=== PATIENT | female | born 1945 | race Caucasian/White ===

== ENCOUNTER → 2016-10-05 | Outpatient (CLI) | payer OTHER ==
[~2016-10-05] MED LIST: ALPR0.254 PO; ASPIRIN PO; BENAZEPRIL PO; CARV3.1240 OR; CLOP75TA28 OR; DIPH25CA39 OR; DOCU-94 PO; FLUT110A IN; FOLI1TAB6 OR; GABA300C OR; HYDR-2549 OR; METH1INJ12 IJ; NITROSTAT SL; OMEGCAP OR; OMEPRAZOLE; PRE5T PO; RANI-226 OR; SIMV40TA96 OR; THIA100T46 OR; TRIA1TAB18 OR; [UNRECOGNIZED DRUG - OTHER]; [UNRECOGNIZED DRUG - OTHER]; [UNRECOGNIZED DRUG - OTHER] PO
[2016-10-05 09:14] LABS: Basophils # (auto) 0 uL; Basophils % (auto) 0.5 % (0.0-2.0); Eosinophils # (auto) 0.2 uL; Eosinophils % (auto) 2.4 % (0.0-7.0); Hemoglobin 13.1 g/dL (12.2-16.2); Lymphocytes # (auto) 3.1 uL; Lymphocytes % (auto) 42.1 % (10.0-50.0); Mean Corpuscular Hemoglobin 31.4 pg (28.0-32.0); Mean Corpuscular Hgb Conc. 32.6 g/dL (32.0-36.0); Mean Corpuscular Volume 96.2 fL (80.0-100.0); Mean Platelet Volume 6.4 fL (7.4-10.4); Monocytes # (auto) 0.4 uL; Monocytes % (auto) 5.8 % (0.0-12.0); Neutrophils # (auto) 3.6 uL; Neutrophils % (auto) 49.2 % (37.0-80.0); Platelet Count (auto) 228 10^3/uL (140-450); Red Cell Distribution Width 16.4 % (11.6-16.0); White Blood Cell 7.3 10^3/uL (4.4-10.8)
[2016-10-05 09:39] LABS: Albumin 3.8 g/dL (3.4-5.0); Bilirubin, Total 0.4 mg/dL (0.2-1.0); Calcium 8.8 mg/dL (8.5-10.1); Potassium 4.5 mmol/L (3.5-5.1)
[2016-10-05 10:54] LABS: Urine Bilirubin Negative (Negative); Urine Blood Negative /uL (Negative); Urine Color Yellow (Yellow); Urine Glucose Normal (Normal); Urine Ketone Negative (Negative); Urine Nitrite Negative (Negative); Urine RBC 1 /hpf (0 - 4); Urine Squamous Epithelial Cell FEW /hpf (<5); Urine Urobilinogen Normal (Negative); Urine pH 6.5 (5.0-8.0)
== END | disposition home or self-care (01) ==
LOC: LAB 08:38
PROVIDERS: ATTEND Internal Medicine
DX: E78.00 Pure hypercholesterolemia, unspecified (principal); I10 Essential (primary) hypertension; N18.3 Chronic kidney disease, stage 3 (moderate); Z00.00 Encounter for general adult medical examination without abnormal findings
CPT/HCPCS: 36415; 80053; 80061; 81001; 83615; 84443; 85025; 85652; 86141

== ENCOUNTER → 2016-10-10 | Outpatient (CLI) | payer OTHER | END | disposition home or self-care (01) | LOC: LAB 15:17 | PROVIDERS: ATTEND Internal Medicine | DX: E78.00 Pure hypercholesterolemia, unspecified (principal); I10 Essential (primary) hypertension; N18.3 Chronic kidney disease, stage 3 (moderate); Z00.00 Encounter for general adult medical examination without abnormal findings ==

== ENCOUNTER → 2016-12-27 | Outpatient (CLI) | payer OTHER ==
[~2016-12-27] MED LIST changes: -[UNRECOGNIZED DRUG - OTHER]
[2016-12-27 09:53] LABS: Basophils # (auto) 0 uL; Basophils % (auto) 0.3 % (0.0-2.0); Eosinophils # (auto) 0.2 uL; Hematocrit 36.6 % (36.0-46.0); Hemoglobin 12.2 g/dL (12.2-16.2); Lymphocytes # (auto) 2.7 uL; Lymphocytes % (auto) 31.9 % (10.0-50.0); Mean Corpuscular Hemoglobin 31.8 pg (28.0-32.0); Mean Corpuscular Hgb Conc. 33.3 g/dL (32.0-36.0); Mean Corpuscular Volume 95.5 fL (80.0-100.0); Mean Platelet Volume 6.3 fL (7.4-10.4); Monocytes # (auto) 0.6 uL; Monocytes % (auto) 7.1 % (0.0-12.0); Neutrophils # (auto) 4.9 uL; Neutrophils % (auto) 58.7 % (37.0-80.0); Platelet Count (auto) 233 10^3/uL (140-450); Red Cell Distribution Width 16.1 % (11.6-16.0); White Blood Cell 8.4 10^3/uL (4.4-10.8)
[2016-12-27 10:05] LABS: Urine Bilirubin Negative (Negative); Urine Blood Negative /uL (Negative); Urine Color Yellow (Yellow); Urine Glucose Normal (Normal); Urine Ketone Negative (Negative); Urine Nitrite Negative (Negative); Urine RBC 1 /hpf (0 - 4); Urine Squamous Epithelial Cell FEW /hpf (<5); Urine Urobilinogen Normal (Negative); Urine pH 5.5 (5.0-8.0)
[2016-12-27 10:30] LABS: Albumin 3.5 g/dL (3.4-5.0); Bilirubin, Total 0.3 mg/dL (0.2-1.0); Calcium 8.8 mg/dL (8.5-10.1); Potassium 5.2 mmol/L (3.5-5.1); Total Protein 6.8 g/dL (6.4-8.2)
[2016-12-27 10:31] LABS: Vitamin B12 1360 pg/mL (211-911)
== END | disposition home or self-care (01) ==
LOC: LAB 09:18
DX: E78.5 Hyperlipidemia, unspecified (principal); I10 Essential (primary) hypertension; D64.9 Anemia, unspecified
CPT/HCPCS: 36415; 80053; 80061; 81001; 82306; 82607; 82746; 83540; 83550; 84425; 84443; 85025; 85652; 86141

== ENCOUNTER → 2017-01-07 | Outpatient (CLI) | payer OTHER ==
[2017-01-07 14:54] LABS: Albumin 3.6 g/dL (3.4-5.0); BUN/Creatinine Ratio 12.9; Bilirubin, Total 0.2 mg/dL (0.2-1.0); Potassium 4.2 mmol/L (3.5-5.1); Total Protein 6.9 g/dL (6.4-8.2)
== END | disposition home or self-care (01) ==
LOC: LAB 13:54
PROVIDERS: ATTEND Internal Medicine
DX: C50.919 Malignant neoplasm of unspecified site of unspecified female breast (principal)
CPT/HCPCS: 36415; 80053; 83615

== ENCOUNTER 2017-04-01 11:55 | Emergency (ER) | payer OTHER ==
[~2017-04-01] VITALS: Ht 165.1 cm; Wt 56.7 kg
[2017-04-01 13:07] LABS: Basophils # (auto) 0 uL; Basophils % (auto) 0.5 % (0.0-2.0); CONDITION Y; Eosinophils # (auto) 0 uL; Eosinophils % (auto) 0.4 % (0.0-7.0); Hematocrit 35.8 % (36.0-46.0); Hemoglobin 12.2 g/dL (12.2-16.2); Lymphocytes # (auto) 1.5 uL; Lymphocytes % (auto) 18.6 % (10.0-50.0); Mean Corpuscular Hemoglobin 31.7 pg (28.0-32.0); Mean Corpuscular Volume 93.3 fL (80.0-100.0); Mean Platelet Volume 6.1 fL (7.4-10.4); Monocytes # (auto) 0.5 uL; Monocytes % (auto) 6.8 % (0.0-12.0); Neutrophils # (auto) 5.9 uL; Neutrophils % (auto) 73.7 % (37.0-80.0); Platelet Count (auto) 296 10^3/uL (140-450); Red Cell Distribution Width 15.7 % (11.6-16.0); White Blood Cell 8.1 10^3/uL (4.4-10.8)
[2017-04-01 13:24] LABS: Urine Bilirubin Negative (Negative); Urine Blood Negative /uL (Negative); Urine Color Yellow (Yellow); Urine Glucose Normal (Normal); Urine Ketone Negative (Negative); Urine Mucus FEW (None Seen); Urine Nitrite Negative (Negative); Urine RBC <1 /hpf (0 - 4); Urine Squamous Epithelial Cell FEW /hpf (<5); Urine Urobilinogen Normal (Negative); Urine pH 6.5 (5.0-8.0)
[2017-04-01] MEDS ORDERED: ONDANSETRON HCL 4 MG/2 ML VIAL IV ONE (13:30)
[2017-04-01 13:35] LABS: Albumin 3.6 g/dL (3.4-5.0); Anion Gap 10 (5-15); BUN/Creatinine Ratio 18.7; Blood Urea Nitrogen 14 mg/dL (7-18); Calcium 8.7 mg/dL (8.5-10.1); Carbon Dioxide 26 mmol/L (21-32); Chloride 99 mmol/L (98-107); GFR African American 98 mL/min; GFR Non-African American 81 mL/min; Glucose 105 mg/dL (74-106); Potassium 4.3 mmol/L (3.5-5.1); Sodium 135 mmol/L (136-145)
[2017-04-01 13:44] LABS: Alkaline Phosphatase 86 U/L (45-117); Aspartate Aminotransferase 21 U/L (15-37); Bilirubin, Total 0.3 mg/dL (0.2-1.0); Total Protein 7.2 g/dL (6.4-8.2)
[2017-04-01] MEDS ORDERED: HYDROcodone-ACET 5/325MG TAB PO ONE (19:15)
[2017-04-01] MEDS ORDERED: LORazepam 2MG/ML-1ML VIAL IV ONE (19:15)
[2017-04-01] MEDS ORDERED: SODIUM CHLORIDE 0.9% 2,000 ML IV ONE (19:15)
[2017-04-01 20:21] VITALS: BP 142/77
[2017-04-01 20:59] LABS: INR 0.91 (0.9-1.15); Prothrombin Time 9.9 sec (9.37-12.3)
== END 2017-04-01 20:25 | disposition short-term general hospital (02) ==
LOC: ER 11:55
DX: S06.5X9A Traumatic subdural hemorrhage with loss of consciousness of unspecified duration, initial encounter (principal); M19.90 Unspecified osteoarthritis, unspecified site; K21.9 Gastro-esophageal reflux disease without esophagitis; I10 Essential (primary) hypertension; I25.10 Atherosclerotic heart disease of native coronary artery without angina pectoris; Z85.3 Personal history of malignant neoplasm of breast; F17.210 Nicotine dependence, cigarettes, uncomplicated; Z88.1 Allergy status to other antibiotic agents; Z88.2 Allergy status to sulfonamides; Z79.899 Other long term (current) drug therapy; Z79.82 Long term (current) use of aspirin; W10.9XXA Fall (on) (from) unspecified stairs and steps, initial encounter; Y93.89 Activity, other specified; Y99.8 Other external cause status; Y92.89 Other specified places as the place of occurrence of the external cause
CPT/HCPCS: 36415; 70450; 71010; 80053; 81001; 84484; 85025; 85610; 96361; 96374; 96375; 99285; J2060; J2405; J7030

== ENCOUNTER → 2017-05-15 | Outpatient (CLI) | payer OTHER ==
[2017-05-15 09:22] LABS: Basophils # (auto) 0 uL; Basophils % (auto) 0.4 % (0.0-2.0); CONDITION Y; Eosinophils # (auto) 0.2 uL; Eosinophils % (auto) 2.1 % (0.0-7.0); Hematocrit 40.8 % (36.0-46.0); Hemoglobin 13.8 g/dL (12.2-16.2); Lymphocytes # (auto) 3.7 uL; Lymphocytes % (auto) 46.5 % (10.0-50.0); Mean Corpuscular Hemoglobin 31.4 pg (28.0-32.0); Mean Corpuscular Hgb Conc. 33.9 g/dL (32.0-36.0); Mean Corpuscular Volume 92.7 fL (80.0-100.0); Mean Platelet Volume 6.2 fL (7.4-10.4); Monocytes # (auto) 0.6 uL; Neutrophils # (auto) 3.5 uL; Platelet Count (auto) 246 10^3/uL (140-450); Red Cell Distribution Width 14.8 % (11.6-16.0)
[2017-05-15 09:48] LABS: Albumin 3.8 g/dL (3.4-5.0); Calcium 9.1 mg/dL (8.5-10.1); Potassium 4.6 mmol/L (3.5-5.1)
[2017-05-15 11:40] LABS: Bilirubin, Total 0.4 mg/dL (0.2-1.0); Total Protein 6.8 g/dL (6.4-8.2)
== END ==
LOC: LAB 08:44
DX: I10 Essential (primary) hypertension (principal); D64.9 Anemia, unspecified; M06.9 Rheumatoid arthritis, unspecified; I25.10 Atherosclerotic heart disease of native coronary artery without angina pectoris; K21.9 Gastro-esophageal reflux disease without esophagitis; Z79.899 Other long term (current) drug therapy; J44.9 Chronic obstructive pulmonary disease, unspecified
CPT/HCPCS: 36415; 80053; 85025; 85652; 86141

== ENCOUNTER → 2017-06-10 | Outpatient (CLI) | payer OTHER | END | disposition home or self-care (01) | LOC: LAB 10:00 | PROVIDERS: ATTEND Physician Assistant | DX: L82.1 Other seborrheic keratosis (principal) ==

== ENCOUNTER → 2017-08-07 | Outpatient (CLI) | payer OTHER ==
[2017-08-07 08:54] LABS: Basophils # (auto) 0.1 uL; Basophils % (auto) 0.6 % (0.0-2.0); Eosinophils # (auto) 0.1 uL; Hematocrit 39.5 % (36.0-46.0); Hemoglobin 13.4 g/dL (12.2-16.2); Lymphocytes # (auto) 2.2 uL; Lymphocytes % (auto) 21.6 % (10.0-50.0); Mean Corpuscular Hemoglobin 31.6 pg (28.0-32.0); Mean Corpuscular Volume 93.1 fL (80.0-100.0); Monocytes # (auto) 0.6 uL; Monocytes % (auto) 5.6 % (0.0-12.0); Neutrophils # (auto) 7.2 uL; Neutrophils % (auto) 71.2 % (37.0-80.0); Platelet Count (auto) 204 10^3/uL (140-450); Red Blood Cells 4.24 10^6/uL (4.0-5.20); Red Cell Distribution Width 15.9 % (11.8-14.3); White Blood Cell 10.1 10^3/uL (4.4-10.8)
[2017-08-07 09:41] LABS: Albumin 3.9 g/dL (3.4-5.0); BUN/Creatinine Ratio 13.2; Bilirubin, Total 0.4 mg/dL (0.2-1.0); CRP High Sensitivity 0.12 mg/dL (< 0.3); Calcium 9.3 mg/dL (8.5-10.1); Potassium 5.5 mmol/L (3.5-5.1); Total Protein 7.3 g/dL (6.4-8.2)
== END | disposition home or self-care (01) ==
LOC: LAB 08:40
DX: I11.0 Hypertensive heart disease with heart failure (principal); I50.9 Heart failure, unspecified; I70.0 Atherosclerosis of aorta; M06.9 Rheumatoid arthritis, unspecified; D64.9 Anemia, unspecified; E78.00 Pure hypercholesterolemia, unspecified; Z79.899 Other long term (current) drug therapy
CPT/HCPCS: 36415; 80053; 85025; 85652; 86141

== ENCOUNTER 2017-12-11 20:00 | Inpatient (IN) | payer OTHER ==
[~2017-12-11] VITALS: Ht 165.1 cm; Wt 59.0 kg
[2017-12-11 21:12] LABS: Basophils # (auto) 0 uL; Basophils % (auto) 0.4 % (0.0-2.0); Eosinophils # (auto) 0.2 uL; Eosinophils % (auto) 1.8 % (0.0-7.0); Hematocrit 37.6 % (36.0-46.0); Hemoglobin 12.5 g/dL (12.2-16.2); Lymphocytes # (auto) 3.5 uL; Lymphocytes % (auto) 41.7 % (10.0-50.0); Mean Corpuscular Hemoglobin 31.8 pg (28.0-32.0); Mean Corpuscular Hgb Conc. 33.2 g/dL (32.0-36.0); Mean Corpuscular Volume 95.7 fL (80.0-100.0); Monocytes # (auto) 0.6 uL; Monocytes % (auto) 6.8 % (0.0-12.0); Neutrophils # (auto) 4.1 uL; Neutrophils % (auto) 49.3 % (37.0-80.0); Platelet Count (auto) 197 10^3/uL (140-450); Red Blood Cells 3.93 10^6/uL (4.0-5.20); Red Cell Distribution Width 14.8 % (11.8-14.3); White Blood Cell 8.4 10^3/uL (4.4-10.8)
[2017-12-11 21:26] LABS: Anion Gap 7 (5-15); Carbon Dioxide 21 mmol/L (21-32); Chloride 105 mmol/L (98-107); Potassium 4.4 mmol/L (3.5-5.1); Sodium 133 mmol/L (136-145)
[2017-12-11] MEDS ORDERED: ONDANSETRON HCL 4 MG/2 ML VIAL IV ONE (21:45)
[2017-12-11] MEDS ORDERED: MORPHINE SULFATE 4 MG/ML SYR/VIAL IV ONE (21:45)
[2017-12-11 21:57] LABS: Alanine Aminotransferase 21 U/L (13-56); Albumin 3.8 g/dL (3.4-5.0); Alkaline Phosphatase 75 U/L (45-117); Aspartate Aminotransferase 21 U/L (15-37); BUN/Creatinine Ratio 11.2; Bilirubin, Total 0.3 mg/dL (0.2-1.0); Blood Urea Nitrogen 11 mg/dL (7-18); Calcium 8.6 mg/dL (8.5-10.1); GFR African American 72 mL/min; GFR Non-African American 59 mL/min; Glucose 133 mg/dL (74-106)
[2017-12-11] MEDS ORDERED: ONDANSETRON HCL 4 MG/2 ML VIAL IV PRN (22:30)
[2017-12-11] MEDS ORDERED: TEMAZEPAM 15 MG CAP PO PRN (22:30)
[2017-12-11] MEDS ORDERED: NITROGLYCERIN 0.4 MG SL TAB SL PRN (22:30)
[2017-12-11] MEDS ORDERED: MORPHINE SULFATE 4 MG/ML SYR/VIAL IV PRN (22:30)
[2017-12-11] MEDS ORDERED: DOCUSATE SOD 100 MG CAP PO PRN (22:30)
[2017-12-11] MEDS ORDERED: ATORVASTATIN 20 MG TAB PO ONE (22:30)
[2017-12-11] MEDS ORDERED: ACETAMINOPHEN 325 MG TAB PO PRN (22:30)
[2017-12-11] MEDS ORDERED: HYDROcodone-ACET 5/325MG TAB PO PRN (22:30)
[2017-12-11 22:38] LABS: INR 0.89 (0.9-1.15); Partial Thromboplastin Time 27.6 sec (22.64-33.71); Prothrombin Time 9.7 sec (9.37-12.3)
[2017-12-11] MEDS: ENOXAPARIN SOD 40 MG/0.4 ML SYRINGE SC SCH (22:45)
[2017-12-11] MEDS ORDERED: ALBUTEROL SULF 2.5 MG/0.5ML(0.5%) NEB SOLN NEB PRN (23:45)
[2017-12-11 23:46] VITALS: BP 125/70
[2017-12-12 00:37] VITALS: BP 125/70
[2017-12-12] MEDS ORDERED: IOHEXOL 350 MG/ML 100ML IJ ONE (00:40)
[2017-12-12 01:51] VITALS: BP 125/90
[2017-12-12 05:22] VITALS: BP 105/69
[2017-12-12 06:18] LABS: Basophils # (auto) 0 uL; Basophils % (auto) 0.4 % (0.0-2.0); Eosinophils # (auto) 0.2 uL; Eosinophils % (auto) 2.6 % (0.0-7.0); Hematocrit 34.3 % (36.0-46.0); Hemoglobin 11.6 g/dL (12.2-16.2); Lymphocytes # (auto) 3.4 uL; Mean Corpuscular Hemoglobin 32.1 pg (28.0-32.0); Mean Corpuscular Hgb Conc. 33.7 g/dL (32.0-36.0); Mean Corpuscular Volume 95.3 fL (80.0-100.0); Monocytes # (auto) 0.6 uL; Monocytes % (auto) 8.7 % (0.0-12.0); Neutrophils # (auto) 2.8 uL; Neutrophils % (auto) 40.3 % (37.0-80.0); Nucleated Red Blood Cells % 0.1 %; Platelet Count (auto) 169 10^3/uL (140-450)
[2017-12-12 06:37] LABS: Albumin 3.3 g/dL (3.4-5.0); BUN/Creatinine Ratio 10.6; Bilirubin, Total 0.4 mg/dL (0.2-1.0); Calcium 8.5 mg/dL (8.5-10.1); Potassium 4.1 mmol/L (3.5-5.1); Total Protein 6.1 g/dL (6.4-8.2)
[2017-12-12 08:00] VITALS: BP 133/65
[2017-12-12] MEDS ORDERED: FAMOTIDINE 20 MG TAB PO SCH (10:00)
[2017-12-12] MEDS ORDERED: FOLIC ACID 1 MG TAB PO SCH (10:00)
[2017-12-12] MEDS ORDERED: predniSONE 5 MG TAB PO SCH (10:00)
[2017-12-12] MEDS ORDERED: ASPirin 81 mg TAB PO SCH (10:00)
[2017-12-12] MEDS ORDERED: METOPROLOL SUCCINATE XL 50 MG TAB PO SCH (10:00)
[2017-12-12] MEDS: ENOXAPARIN SOD 40 MG/0.4 ML SYRINGE SC SCH (10:02)
[2017-12-12 12:25] VITALS: BP 122/78
[2017-12-12 12:45] VITALS: BP 122/78
[2017-12-12] MEDS ORDERED: ATORVASTATIN 20 MG TAB PO SCH ×2 (22:00)
== END 2017-12-12 14:17 | disposition home or self-care (01) | DRG 206 ==
LOC: ER 20:00 → EDUNIT# 20:01 → TELE-WESTW 20:01
PROVIDERS: ADMIT Nurse Practitioner; ATTEND Family Medicine
DX: M94.0 Chondrocostal junction syndrome [Tietze] (principal); M06.9 Rheumatoid arthritis, unspecified; E78.00 Pure hypercholesterolemia, unspecified; I25.2 Old myocardial infarction; E78.5 Hyperlipidemia, unspecified; F17.210 Nicotine dependence, cigarettes, uncomplicated; F32.9 Major depressive disorder, single episode, unspecified; F41.9 Anxiety disorder, unspecified; I10 Essential (primary) hypertension; Z79.82 Long term (current) use of aspirin; Z79.899 Other long term (current) drug therapy; Z82.49 Family history of ischemic heart disease and other diseases of the circulatory system; Z88.2 Allergy status to sulfonamides; Z88.1 Allergy status to other antibiotic agents
CPT/HCPCS: 36415; 71045; 71275; 80053; 83735; 83880; 84443; 84484; 85025; 85379; 85610; 85730; 93005; 93306; 94761; 96374; 96375; J2405

== ENCOUNTER → 2018-01-10 | Outpatient (CLI) | payer OTHER ==
[~2018-01-10] MED LIST changes: +ALBUAER3 IN; +AMIT100T2 PO; +ASPI81TA13 PO; +BENA5TAB5 PO; +DICL1GEL26 TD; +FOLI1TAB6 PO; +GABA300C10 PO; +HYDR-3682 PO; +HYDR-531 PO; +LEUC5TAB PO; +METO-535 PO; +NITR0.2D12 TD; +NITR0.4S29 SL; +OME20T PO; +RANI1TAB6 PO; +SIMV-13 PO; +TRIA0.1P11 TOP; +TRIA0.25 PO
[2018-01-10 09:05] LABS: Basophils # (auto) 0 uL; Basophils % (auto) 0.6 % (0.0-2.0); Eosinophils # (auto) 0.1 uL; Eosinophils % (auto) 1.8 % (0.0-7.0); Hematocrit 36.8 % (36.0-46.0); Hemoglobin 12.4 g/dL (12.2-16.2); Lymphocytes % (auto) 27.7 % (10.0-50.0); Mean Corpuscular Hgb Conc. 33.7 g/dL (32.0-36.0); Mean Corpuscular Volume 94.8 fL (80.0-100.0); Monocytes # (auto) 0.5 uL; Monocytes % (auto) 7.4 % (0.0-12.0); Neutrophils # (auto) 4.4 uL; Neutrophils % (auto) 62.5 % (37.0-80.0); Platelet Count (auto) 210 10^3/uL (140-450); Red Blood Cells 3.88 10^6/uL (4.0-5.20); Red Cell Distribution Width 15.1 % (11.8-14.3); White Blood Cell 7.1 10^3/uL (4.4-10.8)
[2018-01-10 09:16] LABS: INR 0.92 (0.9-1.15); Partial Thromboplastin Time 26.3 sec (22.64-33.71)
[2018-01-10 09:36] LABS: Albumin 3.7 g/dL (3.4-5.0); BUN/Creatinine Ratio 10.6; Bilirubin, Total 0.3 mg/dL (0.2-1.0); Calcium 8.7 mg/dL (8.5-10.1); Potassium 4.8 mmol/L (3.5-5.1)
== END | disposition home or self-care (01) ==
LOC: LAB 08:42
PROVIDERS: ATTEND Internal Medicine Cardiovascular Disease
DX: Z01.812 Encounter for preprocedural laboratory examination (principal); I20.8 Other forms of angina pectoris
CPT/HCPCS: 36415; 80053; 85025; 85610; 85730

== ENCOUNTER → 2018-02-13 | Outpatient (CLI) | payer OTHER ==
[~2018-02-13] MED LIST changes: -ASPIRIN PO; -BENAZEPRIL PO; -CARV3.1240 OR; -CLOP75TA28 OR; -DIPH25CA39 OR; -DOCU-94 PO; -FLUT110A IN; -FOLI1TAB6 OR; -GABA300C OR; -HYDR-2549 OR; -METH1INJ12 IJ; -NITROSTAT SL; -OMEGCAP OR; -OMEPRAZOLE; -RANI-226 OR; -SIMV40TA96 OR; -THIA100T46 OR; -TRIA1TAB18 OR; -[UNRECOGNIZED DRUG - OTHER]; -[UNRECOGNIZED DRUG - OTHER] PO
[2018-02-13 15:41] LABS: Basophils # (auto) 0 uL; Basophils % (auto) 0.5 % (0.0-2.0); Eosinophils # (auto) 0.1 uL; Eosinophils % (auto) 0.9 % (0.0-7.0); Hemoglobin 11.8 g/dL (12.2-16.2); Lymphocytes # (auto) 2.3 uL; Lymphocytes % (auto) 29.4 % (10.0-50.0); Mean Corpuscular Hemoglobin 31.5 pg (28.0-32.0); Mean Corpuscular Hgb Conc. 33.7 g/dL (32.0-36.0); Mean Corpuscular Volume 93.6 fL (80.0-100.0); Monocytes # (auto) 0.6 uL; Neutrophils # (auto) 4.8 uL; Neutrophils % (auto) 61.2 % (37.0-80.0); Nucleated Red Blood Cells % 0.1 %; Platelet Count (auto) 198 10^3/uL (140-450); Red Blood Cells 3.74 10^6/uL (4.0-5.20); Red Cell Distribution Width 14.2 % (11.8-14.3); White Blood Cell 7.8 10^3/uL (4.4-10.8)
[2018-02-13 15:57] LABS: Albumin 3.5 g/dL (3.4-5.0); BUN/Creatinine Ratio 17.9; Bilirubin, Total 0.1 mg/dL (0.2-1.0); Calcium 8.6 mg/dL (8.5-10.1); Potassium 4.3 mmol/L (3.5-5.1); Total Protein 6.9 g/dL (6.4-8.2)
== END | disposition home or self-care (01) ==
LOC: LAB 15:04
PROVIDERS: ATTEND Internal Medicine
DX: C50.919 Malignant neoplasm of unspecified site of unspecified female breast (principal); I10 Essential (primary) hypertension; J44.9 Chronic obstructive pulmonary disease, unspecified; M06.9 Rheumatoid arthritis, unspecified; Z85.3 Personal history of malignant neoplasm of breast
CPT/HCPCS: 36415; 80053; 83615; 85025

== ENCOUNTER 2018-06-08 13:13 | Inpatient (IN) | payer OTHER ==
[~2018-06-08] VITALS: Ht 170.2 cm; Wt 65.8 kg
[~2018-06-08 13:13] MED LIST changes: +ASPI1TAB19 PO; -ASPI81TA13 PO
[2018-06-08] MEDS ORDERED: SODIUM CHLORIDE 0.9% 1,000 ML IV ONE (13:51)
[2018-06-08] MEDS ORDERED: SODIUM CHLORIDE 0.9% 500 ML IVB ONE (13:51)
[2018-06-08] MEDS ORDERED: PROMETHAZINE HCL 25 MG/ML 1ML IV PRN (14:00)
[2018-06-08] MEDS: MORPHINE SULFATE 4 MG/ML SYR/VIAL IV ONE ×2 (14:00→17:37)
[2018-06-08 14:47] LABS: Basophils # (auto) 0.1 uL; Basophils % (auto) 1.1 % (0.0-2.0); Eosinophils # (auto) 0.1 uL; Eosinophils % (auto) 0.8 % (0.0-7.0); Hematocrit 53.1 % (36.0-46.0); Hemoglobin 17.8 g/dL (12.2-16.2); Lymphocytes # (auto) 1.6 uL; Lymphocytes % (auto) 13.6 % (10.0-50.0); Mean Corpuscular Hemoglobin 30.8 pg (28.0-32.0); Mean Corpuscular Hgb Conc. 33.6 g/dL (32.0-36.0); Mean Corpuscular Volume 91.9 fL (80.0-100.0); Monocytes # (auto) 1.2 uL; Monocytes % (auto) 9.9 % (0.0-12.0); Neutrophils # (auto) 8.7 uL; Neutrophils % (auto) 74.6 % (37.0-80.0); Platelet Count (auto) 245 10^3/uL (140-450); Red Blood Cells 5.78 10^6/uL (4.0-5.20); White Blood Cell 11.6 10^3/uL (4.4-10.8)
[2018-06-08 14:54] LABS: Partial Thromboplastin Time 25.5 sec (23.78-33.04); Prothrombin Time 10.7 sec (9.27-12.13)
[2018-06-08 15:05] LABS: Alanine Aminotransferase 37 U/L (13-56); Albumin 4.2 g/dL (3.4-5.0); Anion Gap 18 (5-15); Aspartate Aminotransferase 29 U/L (15-37); BUN/Creatinine Ratio 11.9; Blood Urea Nitrogen 22 mg/dL (7-18); Calcium 9.3 mg/dL (8.5-10.1); Carbon Dioxide 20 mmol/L (21-32); Chloride 97 mmol/L (98-107); GFR African American 34 mL/min; GFR Non-African American 28 mL/min; Glucose 172 mg/dL (74-106); Sodium 135 mmol/L (136-145)
[2018-06-08 15:08] LABS: Alkaline Phosphatase 83 U/L (45-117); Bilirubin, Total 0.7 mg/dL (0.2-1.0); Total Protein 8.1 g/dL (6.4-8.2)
[2018-06-08] MEDS ORDERED: GASTROGRAFIN 120 ML SOL ONE (16:04)
[2018-06-08 16:14] LABS: Urine Bacteria NONE SEEN /hpf (None Seen); Urine Blood Negative /uL (Negative); Urine Specific Gravity 1.011 (1.001-1.035); Urine WBC 1 /hpf (0 - 5)
[2018-06-08 16:24] LABS: Amylase 93 U/L (25-115); Lipase 235 U/L (73-393); Magnesium 2.4 mg/dL (1.6-2.6)
[2018-06-08] MEDS ORDERED: ONDANSETRON HCL 4 MG/2 ML VIAL IV ONE ×2 (16:30→19:00)
[2018-06-08] MEDS ORDERED: ONDANSETRON HCL 4 MG/2 ML VIAL ONE (18:50)
[2018-06-08] MEDS ORDERED: DEXTROSE (50%) 50ML SYRG IV PRN (21:00)
[2018-06-08] MEDS ORDERED: ONDANSETRON HCL 4 MG/2 ML VIAL IV PRN (21:00)
[2018-06-08] MEDS ORDERED: metroNIDAZOLE 500MG/100ML 100 ML IV ONE (21:00)
[2018-06-08] MEDS ORDERED: MORPHINE SULF INJ 2 MG/ML SYRINGE 1ML IV PRN (21:00)
[2018-06-08] MEDS ORDERED: NITROGLYCERIN 0.4 MG SL TAB SL PRN (21:00)
[2018-06-08] MEDS ORDERED: cefTRIAXone 1GM/10ml IVPUSH 10 ML IV ONE (21:00)
[2018-06-08] MEDS ORDERED: PANTOPRAZOLE 40 MG/10 ML VIAL IV ONE (21:15)
[2018-06-08] MEDS ORDERED: FAMOTIDINE (10MG/ML) 2ML VL IV ONE (21:15)
[2018-06-08 22:00] VITALS: BP 96/63
[2018-06-08] MEDS: D5W/SOD CHL 0.45%/KCL 20MEQ 1,000 ML IV SCH (22:40)
[2018-06-08 22:47] LABS: Lactic Acid w/Reflex 2.8 mmol/L (0.4-2.0)
[2018-06-08] MEDS: ALBUTEROL SULF 2.5 MG/0.5ML(0.5%) NEB SOLN NEB SCH (23:06)
[2018-06-08] MEDS: IPRATROPIUM BROM 0.5 MG/2.5ML INH SOL NEB SCH (23:06)
[2018-06-09] VITALS (8 sets, daily range): BP systolic 106–121; BP diastolic 53–71
[2018-06-09] MEDS: methylPREDNISolone SOD SUCC 125 MG/2 ML VL IV SCH ×4 (00:46→19:06)
[2018-06-09] MEDS ORDERED: diphenhdrAMINE HCL 50 MG/1 ML VL IV ONE (02:15)
[2018-06-09] MEDS: metroNIDAZOLE 500MG/100ML 100 ML IV SCH ×4 (06:08→19:06)
[2018-06-09] MEDS: IPRATROPIUM BROM 0.5 MG/2.5ML INH SOL NEB SCH ×3 (06:09→21:14)
[2018-06-09] MEDS: InsuLIN REG 1unit/0.01ml Soln (100units/ml) SC SCH ×4 (06:09→19:07)
[2018-06-09] MEDS: ACCU-CHEK COMFORT CURVE STRIP VI SCH ×4 (06:09→19:07)
[2018-06-09] MEDS: ALBUTEROL SULF 2.5 MG/0.5ML(0.5%) NEB SOLN NEB SCH ×3 (06:09→21:14)
[2018-06-09 06:22] LABS: Basophils # (auto) 0 uL; Eosinophils # (auto) 0 uL; Eosinophils % (auto) 0.1 % (0.0-7.0); Hematocrit 39.9 % (36.0-46.0); Hemoglobin 13.5 g/dL (12.2-16.2); Lymphocytes # (auto) 0.7 uL; Lymphocytes % (auto) 11.2 % (10.0-50.0); Mean Corpuscular Hemoglobin 31.6 pg (28.0-32.0); Mean Corpuscular Hgb Conc. 33.8 g/dL (32.0-36.0); Mean Corpuscular Volume 93.7 fL (80.0-100.0); Monocytes # (auto) 0.3 uL; Monocytes % (auto) 4.8 % (0.0-12.0); Neutrophils # (auto) 5.4 uL; Neutrophils % (auto) 83.9 % (37.0-80.0); Platelet Count (auto) 180 10^3/uL (140-450); Red Blood Cells 4.26 10^6/uL (4.0-5.20); Red Cell Distribution Width 16.9 % (11.8-14.3); White Blood Cell 6.4 10^3/uL (4.4-10.8)
[2018-06-09 06:40] LABS: Chloride 109 mmol/L (98-107); Potassium 4.3 mmol/L (3.5-5.1); Sodium 138 mmol/L (136-145)
[2018-06-09 06:53] LABS: Albumin 2.7 g/dL (3.4-5.0); Alkaline Phosphatase 52 U/L (45-117); Anion Gap 11 (5-15); BUN/Creatinine Ratio 21.3; Bilirubin, Total 0.7 mg/dL (0.2-1.0); Blood Urea Nitrogen 35 mg/dL (7-18); Carbon Dioxide 18 mmol/L (21-32); GFR African American 39 mL/min; GFR Non-African American 33 mL/min; Glucose 171 mg/dL (74-106); Total Protein 6.1 g/dL (6.4-8.2)
[2018-06-09 07:05] LABS: Alanine Aminotransferase 23 U/L (13-56); Aspartate Aminotransferase 23 U/L (15-37)
[2018-06-09] MEDS: D5W/SOD CHL 0.45%/KCL 20MEQ 1,000 ML IV SCH (07:42)
[2018-06-09] MEDS: FAMOTIDINE (10MG/ML) 2ML VL IV SCH ×2 (10:00→10:08)
[2018-06-09] MEDS: cefTRIAXone 1GM/10ml IVPUSH 10 ML IV SCH (10:08)
[2018-06-09] MEDS: PANTOPRAZOLE 40 MG/10 ML VIAL IV SCH (10:08)
[2018-06-09] MEDS: SODIUM CHLORIDE 0.9% 1,000 ML IV SCH (14:30)
[2018-06-09] MEDS ORDERED: methylPREDNISolone SOD SUCC 40 MG/ML VL IV SCH (22:00)
[2018-06-10] MEDS: metroNIDAZOLE 500MG/100ML 100 ML IV SCH ×5 (00:40→23:18)
[2018-06-10] MEDS: SODIUM CHLORIDE 0.9% 1,000 ML IV SCH ×3 (01:37→20:30)
[2018-06-10 04:33] VITALS: BP 125/65
[2018-06-10] MEDS: ALBUTEROL SULF 2.5 MG/0.5ML(0.5%) NEB SOLN NEB SCH ×3 (05:49→21:32)
[2018-06-10] MEDS: IPRATROPIUM BROM 0.5 MG/2.5ML INH SOL NEB SCH ×3 (05:49→21:32)
[2018-06-10] MEDS: InsuLIN REG 1unit/0.01ml Soln (100units/ml) SC SCH ×5 (06:00→23:12)
[2018-06-10] MEDS: ACCU-CHEK COMFORT CURVE STRIP VI SCH ×5 (06:00→23:11)
[2018-06-10] MEDS: cefTRIAXone 1GM/10ml IVPUSH 10 ML IV SCH (08:28)
[2018-06-10 08:55] VITALS: BP 125/58
[2018-06-10] MEDS ORDERED: GASTROGRAFIN 120 ML SOL ONE (09:07)
[2018-06-10 11:21] LABS: Basophils # (auto) 0 uL; Basophils % (auto) 0.2 % (0.0-2.0); Eosinophils # (auto) 0 uL; Hematocrit 39.6 % (36.0-46.0); Hemoglobin 13.1 g/dL (12.2-16.2); Lymphocytes % (auto) 8.6 % (10.0-50.0); Mean Corpuscular Hgb Conc. 33.1 g/dL (32.0-36.0); Mean Corpuscular Volume 93.7 fL (80.0-100.0); Monocytes # (auto) 0.7 uL; Monocytes % (auto) 5.8 % (0.0-12.0); Neutrophils # (auto) 10.2 uL; Neutrophils % (auto) 85.4 % (37.0-80.0); Nucleated Red Blood Cells % 0.1 %; Platelet Count (auto) 159 10^3/uL (140-450); Red Blood Cells 4.23 10^6/uL (4.0-5.20); Red Cell Distribution Width 17.2 % (11.8-14.3); White Blood Cell 11.9 10^3/uL (4.4-10.8)
[2018-06-10 11:36] LABS: Albumin 3.3 g/dL (3.4-5.0); BUN/Creatinine Ratio 21.4; Bilirubin, Total 0.2 mg/dL (0.2-1.0); Calcium 8.7 mg/dL (8.5-10.1); Magnesium 2.7 mg/dL (1.6-2.6); Potassium 3.5 mmol/L (3.5-5.1); Total Protein 6.9 g/dL (6.4-8.2)
[2018-06-10] MEDS: MORPHINE SULF INJ 2 MG/ML SYRINGE 1ML IV PRN ×3 (11:51→22:16)
[2018-06-10] MEDS: PANTOPRAZOLE 40 MG/10 ML VIAL IV SCH (11:51)
[2018-06-10] MEDS ORDERED: methylPREDNISolone SOD SUCC 40 MG/ML VL ONE (12:51)
[2018-06-10 17:37] VITALS: BP 167/83
[2018-06-10 22:08] VITALS: BP 187/98
[2018-06-10] MEDS: PROMETHAZINE HCL 25 MG/ML 1ML IV PRN (23:06)
[2018-06-11] MEDS: PROMETHAZINE HCL 25 MG/ML 1ML IV PRN (03:15)
[2018-06-11] MEDS: MORPHINE SULF INJ 2 MG/ML SYRINGE 1ML IV PRN ×2 (03:16→06:56)
[2018-06-11 04:44] VITALS: BP 170/99
[2018-06-11] MEDS: ACCU-CHEK COMFORT CURVE STRIP VI SCH ×3 (05:20→17:42)
[2018-06-11] MEDS: metroNIDAZOLE 500MG/100ML 100 ML IV SCH ×3 (05:20→17:43)
[2018-06-11] MEDS: InsuLIN REG 1unit/0.01ml Soln (100units/ml) SC SCH ×3 (05:23→17:43)
[2018-06-11] MEDS: SODIUM CHLORIDE 0.9% 1,000 ML IV SCH ×2 (06:52→16:45)
[2018-06-11] MEDS: IPRATROPIUM BROM 0.5 MG/2.5ML INH SOL NEB SCH ×3 (07:16→22:21)
[2018-06-11] MEDS: ALBUTEROL SULF 2.5 MG/0.5ML(0.5%) NEB SOLN NEB SCH ×3 (07:16→22:21)
[2018-06-11 08:33] VITALS: BP 167/102
[2018-06-11] MEDS: cefTRIAXone 1GM/10ml IVPUSH 10 ML IV SCH (09:18)
[2018-06-11] MEDS: PANTOPRAZOLE 40 MG/10 ML VIAL IV SCH (09:51)
[2018-06-11] MEDS: methylPREDNISolone SOD SUCC 40 MG/ML VL IV SCH (09:52)
[2018-06-11 12:13] VITALS: BP 187/100
[2018-06-11 12:59] LABS: Basophils # (auto) 0 uL; Eosinophils # (auto) 0 uL; Eosinophils % (auto) 0.1 % (0.0-7.0); Hematocrit 49.4 % (36.0-46.0); Hemoglobin 16.7 g/dL (12.2-16.2); Lymphocytes # (auto) 1.1 uL; Lymphocytes % (auto) 8.8 % (10.0-50.0); Mean Corpuscular Hemoglobin 31.5 pg (28.0-32.0); Mean Corpuscular Hgb Conc. 33.7 g/dL (32.0-36.0); Mean Corpuscular Volume 93.4 fL (80.0-100.0); Monocytes # (auto) 0.5 uL; Monocytes % (auto) 4.1 % (0.0-12.0); Neutrophils # (auto) 10.5 uL; Nucleated Red Blood Cells % 0.1 %; Platelet Count (auto) 203 10^3/uL (140-450); Red Blood Cells 5.29 10^6/uL (4.0-5.20); Red Cell Distribution Width 16.9 % (11.8-14.3); White Blood Cell 12.1 10^3/uL (4.4-10.8)
[2018-06-11] MEDS ORDERED: PPN PER PHARMACY 0 ML IV SCH (13:45)
[2018-06-11] MEDS ORDERED: DEXTROSE (50%) 50ML SYRG IV SCH (13:54)
[2018-06-11 15:06] LABS: Albumin 3.2 g/dL (3.4-5.0); BUN/Creatinine Ratio 25.9; Bilirubin, Total 0.4 mg/dL (0.2-1.0); Calcium 8.7 mg/dL (8.5-10.1); Magnesium 2.6 mg/dL (1.6-2.6); Phosphorus 2.7 mg/dL (2.5-4.90); Potassium 5.2 mmol/L (3.5-5.1); Pre Albumin 27.5 mg/dL (20.0-40.0)
[2018-06-11 17:01] VITALS: BP 153/73
[2018-06-11] MEDS: CLINIMIX PER PHARMACY IV NR (20:02)
[2018-06-11 22:00] VITALS: BP 127/99
[2018-06-12] MEDS: metroNIDAZOLE 500MG/100ML 100 ML IV SCH ×4 (00:12→18:02)
[2018-06-12] MEDS: ACCU-CHEK COMFORT CURVE STRIP VI SCH ×5 (00:13→23:14)
[2018-06-12] MEDS: InsuLIN REG 1unit/0.01ml Soln (100units/ml) SC SCH ×5 (00:24→23:14)
[2018-06-12] MEDS: SODIUM CHLORIDE 0.9% 1,000 ML IV SCH ×3 (02:30→23:13)
[2018-06-12] MEDS: HYDROmorphone HCL 2 MG/ML VL IV PRN ×3 (03:29→22:26)
[2018-06-12] MEDS: PROMETHAZINE HCL 25 MG/ML 1ML IV PRN (03:54)
[2018-06-12 05:00] VITALS: BP 145/89
[2018-06-12] MEDS: ALBUTEROL SULF 2.5 MG/0.5ML(0.5%) NEB SOLN NEB SCH ×2 (05:40→14:21)
[2018-06-12] MEDS: IPRATROPIUM BROM 0.5 MG/2.5ML INH SOL NEB SCH ×2 (05:40→14:21)
[2018-06-12 08:25] LABS: Albumin 2.8 g/dL (3.4-5.0); BUN/Creatinine Ratio 27.5; Bilirubin, Total 0.3 mg/dL (0.2-1.0); Magnesium 2.7 mg/dL (1.6-2.6); Phosphorus 1.5 mg/dL (2.5-4.90); Potassium 3.8 mmol/L (3.5-5.1); Total Protein 5.8 g/dL (6.4-8.2)
[2018-06-12 09:00] VITALS: BP 155/76
[2018-06-12] MEDS ORDERED: POTASSIUM PHOSPHATE 44 MEQ in D5W 5% 250 ML IV ONE (09:30)
[2018-06-12] MEDS: cefTRIAXone 1GM/10ml IVPUSH 10 ML IV SCH (09:53)
[2018-06-12] MEDS: methylPREDNISolone SOD SUCC 40 MG/ML VL IV SCH (09:53)
[2018-06-12] MEDS: PANTOPRAZOLE 40 MG/10 ML VIAL IV SCH (09:53)
[2018-06-12] MEDS ORDERED: [UNRECOGNIZED DRUG - OTHER] IV SCH ×15 (10:00→20:00)
[2018-06-12] MEDS ORDERED: POTASSIUM ACETATE IV SCH ×15 (10:00→20:00)
[2018-06-12] MEDS ORDERED: POTASSIUM PHOSPHATE IV SCH ×15 (10:00→20:00)
[2018-06-12] MEDS ORDERED: FAT EMULSION IV SCH ×15 (10:00→20:00)
[2018-06-12 17:08] VITALS: BP 140/70
[2018-06-12] MEDS: CLINIMIX PER PHARMACY IV NR (19:49)
[2018-06-12 21:30] VITALS: BP 124/69
[2018-06-13] MEDS: metroNIDAZOLE 500MG/100ML 100 ML IV SCH ×5 (00:16→23:49)
[2018-06-13 05:18] VITALS: BP 130/74
[2018-06-13] MEDS: ALBUTEROL SULF 2.5 MG/0.5ML(0.5%) NEB SOLN NEB SCH ×3 (05:44→22:53)
[2018-06-13] MEDS: IPRATROPIUM BROM 0.5 MG/2.5ML INH SOL NEB SCH ×3 (05:44→22:53)
[2018-06-13] MEDS: InsuLIN REG 1unit/0.01ml Soln (100units/ml) SC SCH ×4 (06:00→23:49)
[2018-06-13] MEDS: ACCU-CHEK COMFORT CURVE STRIP VI SCH ×4 (07:16→23:49)
[2018-06-13 08:12] LABS: Albumin 3.2 g/dL (3.4-5.0); BUN/Creatinine Ratio 24.3; Bilirubin, Total 0.3 mg/dL (0.2-1.0); Calcium 8.4 mg/dL (8.5-10.1); Magnesium 2.5 mg/dL (1.6-2.6); Phosphorus 2.4 mg/dL (2.5-4.90); Potassium 3.9 mmol/L (3.5-5.1); Total Protein 6.5 g/dL (6.4-8.2)
[2018-06-13 08:30] VITALS: BP 120/92
[2018-06-13] MEDS: cefTRIAXone 1GM/10ml IVPUSH 10 ML IV SCH (10:05)
[2018-06-13] MEDS: PANTOPRAZOLE 40 MG/10 ML VIAL IV SCH (10:06)
[2018-06-13] MEDS: SODIUM CHLORIDE 0.9% 1,000 ML IV SCH ×3 (10:09→23:00)
[2018-06-13] MEDS: methylPREDNISolone SOD SUCC 40 MG/ML VL IV SCH (10:09)
[2018-06-13] MEDS: HYDROmorphone HCL 2 MG/ML VL IV PRN (10:13)
[2018-06-13 12:39] VITALS: BP 159/93
[2018-06-13] MEDS: METOCLOPRAMIDE HCL 5MG/ml INJ 2ml VIAL IV SCH ×2 (13:11→21:14)
[2018-06-13] MEDS ORDERED: POTASSIUM PHOSPHATE IV NR ×7 (20:00)
[2018-06-13] MEDS ORDERED: [UNRECOGNIZED DRUG - OTHER] IV NR ×7 (20:00)
[2018-06-13] MEDS ORDERED: POTASSIUM ACETATE IV NR ×7 (20:00)
[2018-06-13] MEDS ORDERED: FAT EMULSION IV NR ×7 (20:00)
[2018-06-13 22:01] VITALS: BP 130/61
[2018-06-14 05:39] VITALS: BP 112/65
[2018-06-14] MEDS: InsuLIN REG 1unit/0.01ml Soln (100units/ml) SC SCH ×3 (06:00→17:52)
[2018-06-14] MEDS: IPRATROPIUM BROM 0.5 MG/2.5ML INH SOL NEB SCH ×3 (06:21→22:10)
[2018-06-14] MEDS: ALBUTEROL SULF 2.5 MG/0.5ML(0.5%) NEB SOLN NEB SCH ×3 (06:21→22:10)
[2018-06-14] MEDS: metroNIDAZOLE 500MG/100ML 100 ML IV SCH ×3 (06:24→17:51)
[2018-06-14] MEDS: ACCU-CHEK COMFORT CURVE STRIP VI SCH ×3 (06:24→17:52)
[2018-06-14 06:30] LABS: Albumin 3.1 g/dL (3.4-5.0); BUN/Creatinine Ratio 25.8; Bilirubin, Total 0.3 mg/dL (0.2-1.0); Calcium 8.4 mg/dL (8.5-10.1); Magnesium 2.1 mg/dL (1.6-2.6); Phosphorus 2.3 mg/dL (2.5-4.90); Potassium 3.5 mmol/L (3.5-5.1); Total Protein 6.2 g/dL (6.4-8.2)
[2018-06-14] MEDS: HYDROmorphone HCL 2 MG/ML VL IV PRN (08:00)
[2018-06-14 09:14] VITALS: BP 133/60
[2018-06-14] MEDS: METOCLOPRAMIDE HCL 5MG/ml INJ 2ml VIAL IV SCH ×2 (09:34→22:33)
[2018-06-14] MEDS: cefTRIAXone 1GM/10ml IVPUSH 10 ML IV SCH (09:34)
[2018-06-14] MEDS: PANTOPRAZOLE 40 MG/10 ML VIAL IV SCH (09:34)
[2018-06-14] MEDS: methylPREDNISolone SOD SUCC 40 MG/ML VL IV SCH (09:35)
[2018-06-14] MEDS ORDERED: POTASSIUM PHOSP 22MEQ(15MMOLE) in NS 100 ML IV ONE (12:00)
[2018-06-14] MEDS ORDERED: SODIUM PHOSP 20MEQ(15MMOL) IN NS 100 ML IV ONE (12:00)
[2018-06-14 13:06] VITALS: BP 164/103
[2018-06-14] MEDS: SODIUM CHLORIDE 0.9% 1,000 ML IV SCH (16:07)
[2018-06-14 17:10] VITALS: BP 147/81
[2018-06-14] MEDS ORDERED: PPN PER PHARMACY IV NR ×11 (20:00)
[2018-06-14 20:27] VITALS: BP 134/69
[2018-06-14 22:18] VITALS: BP 134/69
[2018-06-14] MEDS: PROMETHAZINE HCL 25 MG/ML 1ML IV PRN (22:34)
[2018-06-15] MEDS: metroNIDAZOLE 500MG/100ML 100 ML IV SCH ×5 (00:50→23:55)
[2018-06-15] MEDS: HYDROmorphone HCL 2 MG/ML VL IV PRN ×2 (03:57→23:55)
[2018-06-15] MEDS: SODIUM CHLORIDE 0.9% 1,000 ML IV SCH ×2 (04:27→14:11)
[2018-06-15 04:48] VITALS: BP 163/90
[2018-06-15] MEDS: InsuLIN REG 1unit/0.01ml Soln (100units/ml) SC SCH ×4 (06:00→18:00)
[2018-06-15] MEDS: ACCU-CHEK COMFORT CURVE STRIP VI SCH ×5 (06:00→23:55)
[2018-06-15] MEDS: ALBUTEROL SULF 2.5 MG/0.5ML(0.5%) NEB SOLN NEB SCH ×3 (06:37→21:36)
[2018-06-15] MEDS: IPRATROPIUM BROM 0.5 MG/2.5ML INH SOL NEB SCH ×3 (06:37→21:36)
[2018-06-15 08:24] VITALS: BP 131/78
[2018-06-15] MEDS: cefTRIAXone 1GM/10ml IVPUSH 10 ML IV SCH (09:04)
[2018-06-15] MEDS: PANTOPRAZOLE 40 MG/10 ML VIAL IV SCH (09:04)
[2018-06-15] MEDS: methylPREDNISolone SOD SUCC 40 MG/ML VL IV SCH (09:04)
[2018-06-15] MEDS: METOCLOPRAMIDE HCL 5MG/ml INJ 2ml VIAL IV SCH ×2 (09:04→21:45)
[2018-06-15 10:41] VITALS: BP 131/78
[2018-06-15 11:09] LABS: Albumin 3.3 g/dL (3.4-5.0); BUN/Creatinine Ratio 23.1; Bilirubin, Total 0.4 mg/dL (0.2-1.0); Calcium 8.5 mg/dL (8.5-10.1); Magnesium 2.3 mg/dL (1.6-2.6); Phosphorus 2.5 mg/dL (2.5-4.90); Potassium 3.5 mmol/L (3.5-5.1); Total Protein 6.5 g/dL (6.4-8.2)
[2018-06-15 12:14] VITALS: BP 136/88
[2018-06-15 17:34] VITALS: BP 146/72
[2018-06-15] MEDS ORDERED: SODIUM ACETATE IV NR ×10 (20:00)
[2018-06-15] MEDS ORDERED: FAT EMULSION IV NR ×10 (20:00)
[2018-06-15] MEDS ORDERED: POTASSIUM ACETATE IV NR ×10 (20:00)
[2018-06-15] MEDS ORDERED: [UNRECOGNIZED DRUG - OTHER] IV NR ×10 (20:00)
[2018-06-15 20:20] VITALS: BP 124/82
[2018-06-15] MEDS: PROMETHAZINE HCL 25 MG/ML 1ML IV PRN (21:45)
[2018-06-16 04:22] VITALS: BP 117/76
[2018-06-16 05:29] LABS: Basophils # (auto) 0 uL; Basophils % (auto) 0.2 % (0.0-2.0); Eosinophils # (auto) 0.1 uL; Eosinophils % (auto) 0.9 % (0.0-7.0); Hematocrit 41.4 % (36.0-46.0); Hemoglobin 13.8 g/dL (12.2-16.2); Lymphocytes # (auto) 2.4 uL; Lymphocytes % (auto) 23.8 % (10.0-50.0); Mean Corpuscular Hemoglobin 31.1 pg (28.0-32.0); Mean Corpuscular Hgb Conc. 33.4 g/dL (32.0-36.0); Monocytes % (auto) 10.1 % (0.0-12.0); Neutrophils # (auto) 6.5 uL; Nucleated Red Blood Cells % 0.1 %; Platelet Count (auto) 157 10^3/uL (140-450); Red Blood Cells 4.45 10^6/uL (4.0-5.20); Red Cell Distribution Width 16.9 % (11.8-14.3)
[2018-06-16] MEDS: HYDROmorphone HCL 2 MG/ML VL IV PRN ×3 (06:09→21:22)
[2018-06-16 06:10] LABS: Albumin 3.3 g/dL (3.4-5.0); BUN/Creatinine Ratio 23.7; Bilirubin, Total 0.4 mg/dL (0.2-1.0); Calcium 8.4 mg/dL (8.5-10.1); Magnesium 2.3 mg/dL (1.6-2.6); Phosphorus 2.9 mg/dL (2.5-4.90); Potassium 3.7 mmol/L (3.5-5.1); Total Protein 6.3 g/dL (6.4-8.2)
[2018-06-16] MEDS: metroNIDAZOLE 500MG/100ML 100 ML IV SCH ×3 (06:16→17:40)
[2018-06-16] MEDS: ACCU-CHEK COMFORT CURVE STRIP VI SCH ×3 (06:20→17:47)
[2018-06-16] MEDS: IPRATROPIUM BROM 0.5 MG/2.5ML INH SOL NEB SCH ×4 (06:25→22:16)
[2018-06-16] MEDS: ALBUTEROL SULF 2.5 MG/0.5ML(0.5%) NEB SOLN NEB SCH ×4 (06:25→22:16)
[2018-06-16] MEDS: InsuLIN REG 1unit/0.01ml Soln (100units/ml) SC SCH ×4 (06:26→17:47)
[2018-06-16] MEDS ORDERED: SODIUM CHLORIDE 0.9% 500 ML IV ONE (06:30)
[2018-06-16 08:15] VITALS: BP 123/78
[2018-06-16] MEDS: SODIUM CHLORIDE 0.9% 1,000 ML IV SCH (08:22)
[2018-06-16] MEDS: cefTRIAXone 1GM/10ml IVPUSH 10 ML IV SCH (09:35)
[2018-06-16] MEDS: METOCLOPRAMIDE HCL 5MG/ml INJ 2ml VIAL IV SCH (09:35)
[2018-06-16] MEDS: PANTOPRAZOLE 40 MG/10 ML VIAL IV SCH (09:35)
[2018-06-16] MEDS: methylPREDNISolone SOD SUCC 40 MG/ML VL IV SCH (09:36)
[2018-06-16] MEDS ORDERED: GASTROGRAFIN 120 ML SOL ONE (11:14)
[2018-06-16] MEDS: PROCHLORPERAZINE EDISYLATE 5 MG/ML 2ML VIAL IV PRN (14:32)
[2018-06-16 16:49] VITALS: BP 149/88
[2018-06-16] MEDS ORDERED: FAT EMULSION IV NR ×20 (20:00)
[2018-06-16] MEDS ORDERED: POTASSIUM ACETATE IV NR ×20 (20:00)
[2018-06-16] MEDS ORDERED: SODIUM ACETATE IV NR ×20 (20:00)
[2018-06-16] MEDS ORDERED: [UNRECOGNIZED DRUG - OTHER] IV NR ×20 (20:00)
[2018-06-16 21:52] VITALS: BP 155/95
[2018-06-17] MEDS: METOCLOPRAMIDE HCL 5MG/ml INJ 2ml VIAL IV SCH ×3 (00:38→22:27)
[2018-06-17] MEDS: metroNIDAZOLE 500MG/100ML 100 ML IV SCH ×4 (00:38→17:16)
[2018-06-17] MEDS: ACCU-CHEK COMFORT CURVE STRIP VI SCH ×4 (00:39→17:16)
[2018-06-17] MEDS: InsuLIN REG 1unit/0.01ml Soln (100units/ml) SC SCH ×4 (00:40→17:16)
[2018-06-17] MEDS: PROCHLORPERAZINE EDISYLATE 5 MG/ML 2ML VIAL IV PRN ×4 (00:40→20:03)
[2018-06-17] MEDS: SODIUM CHLORIDE 0.9% 1,000 ML IV SCH ×2 (00:40→22:32)
[2018-06-17 04:51] VITALS: BP 115/94
[2018-06-17] MEDS: ALBUTEROL SULF 2.5 MG/0.5ML(0.5%) NEB SOLN NEB SCH ×3 (06:38→22:03)
[2018-06-17] MEDS: IPRATROPIUM BROM 0.5 MG/2.5ML INH SOL NEB SCH ×3 (06:38→22:03)
[2018-06-17 07:14] LABS: Albumin 3.2 g/dL (3.4-5.0); BUN/Creatinine Ratio 27.1; Bilirubin, Total 0.5 mg/dL (0.2-1.0); Calcium 8.5 mg/dL (8.5-10.1); Magnesium 2.2 mg/dL (1.6-2.6); Potassium 4.8 mmol/L (3.5-5.1); Total Protein 6.6 g/dL (6.4-8.2)
[2018-06-17] MEDS: HYDROmorphone HCL 2 MG/ML VL IV PRN ×3 (08:22→20:03)
[2018-06-17 09:25] VITALS: BP 154/95
[2018-06-17] MEDS: PANTOPRAZOLE 40 MG/10 ML VIAL IV SCH (09:25)
[2018-06-17] MEDS: methylPREDNISolone SOD SUCC 40 MG/ML VL IV SCH (09:25)
[2018-06-17] MEDS: cefTRIAXone 1GM/10ml IVPUSH 10 ML IV SCH (09:25)
[2018-06-17 12:30] VITALS: BP 144/100
[2018-06-17] MEDS ORDERED: LORazepam 2MG/ML-1ML VIAL IV ONE (15:15)
[2018-06-17 16:45] VITALS: BP 126/78
[2018-06-17] MEDS ORDERED: Ensure Enlive Strawberry 8oz Bottle PO SCH (18:30)
[2018-06-17] MEDS ORDERED: [UNRECOGNIZED DRUG - OTHER] IV NR ×11 (20:00)
[2018-06-17] MEDS ORDERED: SODIUM PHOSPHATES IV NR ×11 (20:00)
[2018-06-17] MEDS ORDERED: FAT EMULSION IV NR ×11 (20:00)
[2018-06-17] MEDS ORDERED: SODIUM ACETATE IV NR ×11 (20:00)
[2018-06-17] MEDS: METOPROLOL TARTRATE 25 MG TAB PO SCH ×2 (22:00→22:32)
[2018-06-18] VITALS (7 sets, daily range): BP systolic 89–149; BP diastolic 60–98
[2018-06-18] MEDS: metroNIDAZOLE 500MG/100ML 100 ML IV SCH ×4 (00:42→18:31)
[2018-06-18] MEDS: InsuLIN REG 1unit/0.01ml Soln (100units/ml) SC SCH ×4 (00:48→18:45)
[2018-06-18] MEDS: ACCU-CHEK COMFORT CURVE STRIP VI SCH ×4 (00:48→18:32)
[2018-06-18] MEDS: METOPROLOL TARTRATE 25 MG TAB PO SCH ×3 (01:00→22:31)
[2018-06-18] MEDS: PROCHLORPERAZINE EDISYLATE 5 MG/ML 2ML VIAL IV PRN ×3 (01:34→19:56)
[2018-06-18] MEDS: HYDROmorphone HCL 2 MG/ML VL IV PRN ×3 (01:34→19:56)
[2018-06-18 06:29] LABS: Albumin 2.8 g/dL (3.4-5.0); BUN/Creatinine Ratio 30.4; Bilirubin, Total 0.4 mg/dL (0.2-1.0); Calcium 7.9 mg/dL (8.5-10.1); Magnesium 1.7 mg/dL (1.6-2.6); Phosphorus 2.5 mg/dL (2.5-4.90); Potassium 3.9 mmol/L (3.5-5.1); Total Protein 5.6 g/dL (6.4-8.2)
[2018-06-18] MEDS: IPRATROPIUM BROM 0.5 MG/2.5ML INH SOL NEB SCH ×2 (06:29→13:55)
[2018-06-18] MEDS: ALBUTEROL SULF 2.5 MG/0.5ML(0.5%) NEB SOLN NEB SCH ×2 (06:30→13:55)
[2018-06-18] MEDS: Ensure Enlive Chocolate 8oz Bottle PO SCH ×3 (08:00→18:00)
[2018-06-18] MEDS: cefTRIAXone 1GM/10ml IVPUSH 10 ML IV SCH (09:05)
[2018-06-18] MEDS: methylPREDNISolone SOD SUCC 40 MG/ML VL IV SCH (09:33)
[2018-06-18] MEDS: METOCLOPRAMIDE HCL 5MG/ml INJ 2ml VIAL IV SCH ×2 (09:33→22:31)
[2018-06-18] MEDS: PANTOPRAZOLE 40 MG/10 ML VIAL IV SCH (09:33)
[2018-06-18] MEDS: LORazepam 2MG/ML-1ML VIAL IV PRN (11:51)
[2018-06-18] MEDS: SODIUM CHLORIDE 0.9% 1,000 ML IV SCH (16:55)
[2018-06-18] MEDS ORDERED: PPN PER PHARMACY IV NR ×12 (20:00)
[2018-06-19] MEDS: LORazepam 2MG/ML-1ML VIAL IV PRN ×4 (00:14→21:33)
[2018-06-19] MEDS: metroNIDAZOLE 500MG/100ML 100 ML IV SCH ×2 (00:15→05:43)
[2018-06-19] MEDS: ACCU-CHEK COMFORT CURVE STRIP VI SCH ×5 (00:26→23:36)
[2018-06-19] MEDS: InsuLIN REG 1unit/0.01ml Soln (100units/ml) SC SCH ×5 (00:26→23:35)
[2018-06-19] MEDS: IPRATROPIUM BROM 0.5 MG/2.5ML INH SOL NEB SCH ×4 (01:32→18:35)
[2018-06-19] MEDS: ALBUTEROL SULF 2.5 MG/0.5ML(0.5%) NEB SOLN NEB SCH ×4 (01:32→18:35)
[2018-06-19 05:48] VITALS: BP 96/60
[2018-06-19] MEDS: Ensure Enlive Chocolate 8oz Bottle PO SCH ×3 (08:00→18:00)
[2018-06-19 09:00] VITALS: BP 138/76
[2018-06-19] MEDS: methylPREDNISolone SOD SUCC 40 MG/ML VL IV SCH (09:23)
[2018-06-19] MEDS: METOCLOPRAMIDE HCL 5MG/ml INJ 2ml VIAL IV SCH ×2 (09:23→21:32)
[2018-06-19] MEDS: PANTOPRAZOLE 40 MG/10 ML VIAL IV SCH (09:23)
[2018-06-19] MEDS: cefTRIAXone 1GM/10ml IVPUSH 10 ML IV SCH (09:23)
[2018-06-19] MEDS: SODIUM CHLORIDE 0.9% 1,000 ML IV SCH ×2 (09:23→23:36)
[2018-06-19] MEDS: HYDROmorphone HCL 2 MG/ML VL IV PRN ×3 (09:24→21:33)
[2018-06-19] MEDS: METOPROLOL TARTRATE 25 MG TAB PO SCH ×2 (10:00→21:33)
[2018-06-19 10:29] LABS: Basophils # (auto) 0.1 uL; Basophils % (auto) 0.3 % (0.0-2.0); Eosinophils # (auto) 0 uL; Eosinophils % (auto) 0.1 % (0.0-7.0); Hematocrit 36.7 % (36.0-46.0); Hemoglobin 11.9 g/dL (12.2-16.2); Lymphocytes # (auto) 1.6 uL; Lymphocytes % (auto) 7.8 % (10.0-50.0); Mean Corpuscular Hemoglobin 29.9 pg (28.0-32.0); Mean Corpuscular Hgb Conc. 32.4 g/dL (32.0-36.0); Mean Corpuscular Volume 92.4 fL (80.0-100.0); Monocytes # (auto) 1.2 uL; Monocytes % (auto) 5.7 % (0.0-12.0); Neutrophils # (auto) 17.7 uL; Neutrophils % (auto) 86.1 % (37.0-80.0); Platelet Count (auto) 155 10^3/uL (140-450); Red Blood Cells 3.98 10^6/uL (4.0-5.20); Red Cell Distribution Width 16.2 % (11.8-14.3); White Blood Cell 20.6 10^3/uL (4.4-10.8)
[2018-06-19 11:04] LABS: Albumin 2.5 g/dL (3.4-5.0); Bilirubin, Total 0.2 mg/dL (0.2-1.0); Calcium 7.9 mg/dL (8.5-10.1); Magnesium 2.4 mg/dL (1.6-2.6); Phosphorus 2.8 mg/dL (2.5-4.90); Total Protein 5.5 g/dL (6.4-8.2)
[2018-06-19 11:17] LABS: Potassium 2.8 mmol/L (3.5-5.1)
[2018-06-19] MEDS: PIPERACILLIN-TAZOB 3.375GM 100 ML IV SCH ×3 (12:00→23:35)
[2018-06-19] MEDS: POTASSIUM CHL 20MEQ/100ML 100 ML IV SCH ×2 (12:02→13:30)
[2018-06-19 13:00] VITALS: BP 138/66
[2018-06-19 14:50] LABS: INR 1.06 (0.9-1.15); Prothrombin Time 11.3 sec (9.27-12.13)
[2018-06-19] MEDS ORDERED: FLUCONAZOLE 200MG/100ML 100 ML IV ONE (15:00)
[2018-06-19] MEDS: PROCHLORPERAZINE EDISYLATE 5 MG/ML 2ML VIAL IV PRN (16:27)
[2018-06-19 16:49] VITALS: BP 131/70
[2018-06-19 17:34] LABS: Urine Bacteria NONE SEEN /hpf (None Seen); Urine Blood Negative /uL (Negative); Urine Specific Gravity 1.021 (1.001-1.035); Urine WBC 2 /hpf (0 - 5)
[2018-06-19] MEDS ORDERED: SODIUM PHOSPHATES IV NR ×11 (20:00)
[2018-06-19] MEDS ORDERED: FAT EMULSION IV NR ×11 (20:00)
[2018-06-19] MEDS ORDERED: SODIUM CHLORIDE IV NR ×11 (20:00)
[2018-06-19] MEDS ORDERED: [UNRECOGNIZED DRUG - REMARK] IV NR ×11 (20:00)
[2018-06-19] MEDS ORDERED: [UNRECOGNIZED DRUG - OTHER] IV NR ×11 (20:00)
[2018-06-19] MEDS: POTASSIUM CHLORIDE 20 MEQ in D5W 5% 1,000 ML IV SCH ×2 (21:21→23:37)
[2018-06-19 21:57] VITALS: BP 136/67
[2018-06-20] VITALS (21 sets, daily range): BP systolic 92–166; BP diastolic 66–92
[2018-06-20] MEDS: PIPERACILLIN-TAZOB 3.375GM 100 ML IV SCH ×3 (05:39→18:03)
[2018-06-20] MEDS: InsuLIN REG 1unit/0.01ml Soln (100units/ml) SC SCH ×3 (05:39→18:00)
[2018-06-20] MEDS: ACCU-CHEK COMFORT CURVE STRIP VI SCH ×3 (05:40→18:00)
[2018-06-20] MEDS: HYDROmorphone HCL 2 MG/ML VL IV PRN (05:40)
[2018-06-20] MEDS: LORazepam 2MG/ML-1ML VIAL IV PRN (05:40)
[2018-06-20] MEDS: ALBUTEROL SULF 2.5 MG/0.5ML(0.5%) NEB SOLN NEB SCH ×3 (06:16→22:12)
[2018-06-20] MEDS: IPRATROPIUM BROM 0.5 MG/2.5ML INH SOL NEB SCH ×3 (06:16→22:12)
[2018-06-20 06:35] LABS: Basophils # (auto) 0 uL; Basophils % (auto) 0.2 % (0.0-2.0); Eosinophils # (auto) 0.1 uL; Eosinophils % (auto) 0.7 % (0.0-7.0); Hematocrit 29.5 % (36.0-46.0); Hemoglobin 10.1 g/dL (12.2-16.2); Lymphocytes # (auto) 1.5 uL; Lymphocytes % (auto) 10.7 % (10.0-50.0); Mean Corpuscular Hemoglobin 31.3 pg (28.0-32.0); Mean Corpuscular Hgb Conc. 34.3 g/dL (32.0-36.0); Mean Corpuscular Volume 91.4 fL (80.0-100.0); Monocytes # (auto) 0.9 uL; Monocytes % (auto) 6.8 % (0.0-12.0); Neutrophils # (auto) 11.2 uL; Neutrophils % (auto) 81.6 % (37.0-80.0); Platelet Count (auto) 165 10^3/uL (140-450); Red Blood Cells 3.22 10^6/uL (4.0-5.20); Red Cell Distribution Width 16.1 % (11.8-14.3); White Blood Cell 13.7 10^3/uL (4.4-10.8)
[2018-06-20 06:50] LABS: Albumin 2.2 g/dL (3.4-5.0); BUN/Creatinine Ratio 32.8; Bilirubin, Total 0.3 mg/dL (0.2-1.0); Calcium 7.6 mg/dL (8.5-10.1); Phosphorus 3.4 mg/dL (2.5-4.90); Potassium 3.3 mmol/L (3.5-5.1)
[2018-06-20] MEDS: Ensure Enlive Chocolate 8oz Bottle PO SCH ×3 (08:00→18:00)
[2018-06-20] MEDS ORDERED: HYDROCORTISONE SOD SUCC 100 MG/2ML INJ VIAL ONE (08:40)
[2018-06-20] MEDS ORDERED: ROCURONIUM 10MG/ML 10ML VIAL IV ONE ×2 (08:40→13:20)
[2018-06-20] MEDS ORDERED: ETOMIDATE (2MG/ML) 20ML VIAL IV ONE (08:40)
[2018-06-20] MEDS ORDERED: HYDROmorphone HCL 2 MG/ML VL ONE (08:40)
[2018-06-20] MEDS ORDERED: fentaNYL CITRATE 10 ML ONE ×2 (08:40→11:33)
[2018-06-20] MEDS ORDERED: MIDAZOLAM HCL 1MG/1ML-2 ML VIAL ONE (08:40)
[2018-06-20] MEDS ORDERED: fentaNYL CITRATE 100 MCG/2 ML VL ONE (08:40)
[2018-06-20] MEDS: METOCLOPRAMIDE HCL 5MG/ml INJ 2ml VIAL IV SCH ×2 (10:00→22:29)
[2018-06-20] MEDS: PANTOPRAZOLE 40 MG/10 ML VIAL IV SCH (10:00)
[2018-06-20] MEDS: FLUCONAZOLE 200MG/100ML 100 ML IV SCH ×2 (10:00→11:00)
[2018-06-20] MEDS: METOPROLOL TARTRATE 25 MG TAB PO SCH ×2 (10:00→22:00)
[2018-06-20] MEDS: methylPREDNISolone SOD SUCC 40 MG/ML VL IV SCH (10:00)
[2018-06-20] MEDS ORDERED: ceFAZolin 1GM VL ONE (13:13)
[2018-06-20] MEDS ORDERED: NOREPINEPHRINE 8 MG/250ML KIT 250 ML IV ONE (13:26)
[2018-06-20] MEDS ORDERED: MIDAZOLAM HCL 1MG/1ML-2 ML VIAL IV PRN (14:30)
[2018-06-20] MEDS ORDERED: METOCLOPRAMIDE HCL 5MG/ml INJ 2ml VIAL IV ONE (14:30)
[2018-06-20] MEDS ORDERED: ACCU-CHEK COMFORT CURVE STRIP VI ONE (14:30)
[2018-06-20] MEDS ORDERED: HYDROmorphone HCL 2 MG/ML VL IV PRN (14:30)
[2018-06-20] MEDS: MIDAZOLAM DRIP 50 mg/50mL 50 ML IV SCH (14:32)
[2018-06-20] MEDS ORDERED: LORazepam 2MG/ML-1ML VIAL IV PRN (14:45)
[2018-06-20] MEDS ORDERED: NITROGLYCERIN 50MG/250ML 250 ML IV ONE (15:10)
[2018-06-20] MEDS: NITROGLYCERIN 50MG/250ML 250 ML IV SCH (15:20)
[2018-06-20] MEDS: fentaNYL Drip 2500mCg/250mlNS 250 ML IV SCH (15:30)
[2018-06-20] MEDS ORDERED: PPN PER PHARMACY IV NR ×11 (20:00)
[2018-06-21] VITALS (100 sets, daily range): BP systolic 65–193; BP diastolic 25–108
[2018-06-21] MEDS: MORPHINE SULFATE 4 MG/ML SYR/VIAL IV PRN ×3 (00:35→22:00)
[2018-06-21] MEDS ORDERED: D5W/ SOD CHL 0.9%/KCL 20MEQ 1,000 ML IV ONE (00:59)
[2018-06-21 04:14] LABS: Basophils # (auto) 0.1 uL; Basophils % (auto) 0.4 % (0.0-2.0); Eosinophils # (auto) 0.1 uL; Eosinophils % (auto) 0.7 % (0.0-7.0); Hematocrit 38.1 % (36.0-46.0); Hemoglobin 12.5 g/dL (12.2-16.2); Lymphocytes # (auto) 2.3 uL; Lymphocytes % (auto) 13.6 % (10.0-50.0); Mean Corpuscular Hemoglobin 30.3 pg (28.0-32.0); Mean Corpuscular Hgb Conc. 32.7 g/dL (32.0-36.0); Mean Corpuscular Volume 92.5 fL (80.0-100.0); Monocytes % (auto) 6.1 % (0.0-12.0); Neutrophils # (auto) 13.2 uL; Neutrophils % (auto) 79.2 % (37.0-80.0); Platelet Count (auto) 195 10^3/uL (140-450); Red Blood Cells 4.12 10^6/uL (4.0-5.20); Red Cell Distribution Width 16.6 % (11.8-14.3); White Blood Cell 16.7 10^3/uL (4.4-10.8)
[2018-06-21 04:42] LABS: Albumin 1.7 g/dL (3.4-5.0); Bilirubin, Total 0.4 mg/dL (0.2-1.0); Calcium 7.1 mg/dL (8.5-10.1); Magnesium 2.1 mg/dL (1.6-2.6); Phosphorus 3.6 mg/dL (2.5-4.90); Potassium 4.1 mmol/L (3.5-5.1); Total Protein 4.5 g/dL (6.4-8.2)
[2018-06-21] MEDS: POTASSIUM CHLORIDE 20 MEQ in D5W 5% 1,000 ML IV SCH (06:13)
[2018-06-21] MEDS: InsuLIN REG 1unit/0.01ml Soln (100units/ml) SC SCH ×4 (06:13→18:17)
[2018-06-21] MEDS: ACCU-CHEK COMFORT CURVE STRIP VI SCH ×4 (06:13→17:34)
[2018-06-21] MEDS: PIPERACILLIN-TAZOB 3.375GM 100 ML IV SCH ×4 (06:13→17:33)
[2018-06-21] MEDS: ALBUTEROL SULF 2.5 MG/0.5ML(0.5%) NEB SOLN NEB SCH ×3 (06:57→22:39)
[2018-06-21] MEDS: IPRATROPIUM BROM 0.5 MG/2.5ML INH SOL NEB SCH ×5 (06:58→22:39)
[2018-06-21] MEDS: Ensure Enlive Chocolate 8oz Bottle PO SCH ×3 (07:37→17:34)
[2018-06-21] MEDS: METOPROLOL TARTRATE 25 MG TAB PO SCH ×2 (10:00→21:59)
[2018-06-21] MEDS: PANTOPRAZOLE 40 MG/10 ML VIAL IV SCH (10:40)
[2018-06-21] MEDS: METOCLOPRAMIDE HCL 5MG/ml INJ 2ml VIAL IV SCH ×2 (10:40→22:21)
[2018-06-21] MEDS: ENOXAPARIN SOD 40 MG/0.4 ML SYRINGE SC SCH (10:41)
[2018-06-21] MEDS: FLUCONAZOLE 200MG/100ML 100 ML IV SCH ×2 (10:43→12:58)
[2018-06-21] MEDS: methylPREDNISolone SOD SUCC 40 MG/ML VL IV SCH (12:57)
[2018-06-21] MEDS: fentaNYL Drip 2500mCg/250mlNS 250 ML IV SCH (14:32)
[2018-06-21] MEDS: MIDAZOLAM DRIP 50 mg/50mL 50 ML IV SCH (14:32)
[2018-06-21] MEDS: NITROGLYCERIN 50MG/250ML 250 ML IV SCH (14:59)
[2018-06-21] MEDS ORDERED: PPN PER PHARMACY IV NR ×11 (20:00)
[2018-06-21] MEDS: PROCHLORPERAZINE EDISYLATE 5 MG/ML 2ML VIAL IV PRN (22:00)
[2018-06-22] VITALS (31 sets, daily range): BP systolic 72–164; BP diastolic 35–70
[2018-06-22] MEDS: PIPERACILLIN-TAZOB 3.375GM 100 ML IV SCH ×4 (00:23→17:52)
[2018-06-22] MEDS: POTASSIUM CHLORIDE 20 MEQ in D5W 5% 1,000 ML IV SCH ×2 (02:06→15:16)
[2018-06-22 04:03] LABS: Basophils # (auto) 0 uL; Basophils % (auto) 0.2 % (0.0-2.0); Eosinophils # (auto) 0 uL; Eosinophils % (auto) 0.4 % (0.0-7.0); Hemoglobin 8.5 g/dL (12.2-16.2); Lymphocytes # (auto) 1.2 uL; Lymphocytes % (auto) 12.5 % (10.0-50.0); Mean Corpuscular Hemoglobin 31.2 pg (28.0-32.0); Mean Corpuscular Hgb Conc. 34.2 g/dL (32.0-36.0); Mean Corpuscular Volume 91.2 fL (80.0-100.0); Monocytes # (auto) 0.9 uL; Monocytes % (auto) 9.4 % (0.0-12.0); Neutrophils # (auto) 7.5 uL; Neutrophils % (auto) 77.5 % (37.0-80.0); Platelet Count (auto) 136 10^3/uL (140-450); Red Blood Cells 2.74 10^6/uL (4.0-5.20); Red Cell Distribution Width 15.9 % (11.8-14.3); White Blood Cell 9.6 10^3/uL (4.4-10.8)
[2018-06-22 04:23] LABS: Albumin 1.4 g/dL (3.4-5.0); Bilirubin, Total 0.3 mg/dL (0.2-1.0); Calcium 6.8 mg/dL (8.5-10.1); Magnesium 2.2 mg/dL (1.6-2.6); Potassium 3.6 mmol/L (3.5-5.1)
[2018-06-22] MEDS: InsuLIN REG 1unit/0.01ml Soln (100units/ml) SC SCH ×4 (06:00→18:05)
[2018-06-22] MEDS: ACCU-CHEK COMFORT CURVE STRIP VI SCH ×4 (06:00→18:11)
[2018-06-22] MEDS: IPRATROPIUM BROM 0.5 MG/2.5ML INH SOL NEB SCH ×5 (06:36→22:20)
[2018-06-22] MEDS: ALBUTEROL SULF 2.5 MG/0.5ML(0.5%) NEB SOLN NEB SCH ×3 (06:36→22:20)
[2018-06-22] MEDS: Ensure Enlive Chocolate 8oz Bottle PO SCH ×3 (08:00→18:00)
[2018-06-22] MEDS: METOPROLOL TARTRATE 25 MG TAB PO SCH ×2 (10:00→22:02)
[2018-06-22] MEDS: HYDROmorphone HCL 2 MG/ML VL IV PRN (10:09)
[2018-06-22] MEDS: FLUCONAZOLE 200MG/100ML 100 ML IV SCH ×2 (10:09→11:25)
[2018-06-22] MEDS: PANTOPRAZOLE 40 MG/10 ML VIAL IV SCH (10:10)
[2018-06-22] MEDS: methylPREDNISolone SOD SUCC 40 MG/ML VL IV SCH (10:10)
[2018-06-22] MEDS: METOCLOPRAMIDE HCL 5MG/ml INJ 2ml VIAL IV SCH ×2 (10:10→22:01)
[2018-06-22] MEDS: ENOXAPARIN SOD 40 MG/0.4 ML SYRINGE SC SCH (10:10)
[2018-06-22] MEDS ORDERED: SODIUM PHOSPHATES 20 MEQ in SODIUM CHL 0.9% 100 ML IV ONE (12:30)
[2018-06-22] MEDS: MORPHINE SULFATE 4 MG/ML SYR/VIAL IV PRN ×2 (17:40→23:12)
[2018-06-22] MEDS ORDERED: CALCIUM GLUC 4.65meq/50ml D5AE 50 ML IV ONE (18:00)
[2018-06-22] MEDS ORDERED: PPN PER PHARMACY IV NR ×12 (20:00)
[2018-06-23] MEDS: PIPERACILLIN-TAZOB 3.375GM 100 ML IV SCH ×2 (00:20→05:46)
[2018-06-23] MEDS: InsuLIN REG 1unit/0.01ml Soln (100units/ml) SC SCH ×4 (00:20→18:00)
[2018-06-23] MEDS: ACCU-CHEK COMFORT CURVE STRIP VI SCH ×4 (00:20→18:00)
[2018-06-23] MEDS: IPRATROPIUM BROM 0.5 MG/2.5ML INH SOL NEB SCH ×6 (02:01→22:49)
[2018-06-23 05:31] VITALS: BP 139/81
[2018-06-23] MEDS: ALBUTEROL SULF 2.5 MG/0.5ML(0.5%) NEB SOLN NEB SCH ×3 (06:12→18:45)
[2018-06-23 07:34] LABS: Magnesium 2.2 mg/dL (1.6-2.6); Phosphorus 3.4 mg/dL (2.5-4.90)
[2018-06-23 07:37] LABS: Albumin 1.5 g/dL (3.4-5.0); BUN/Creatinine Ratio 25.8; Bilirubin, Total 0.3 mg/dL (0.2-1.0); Calcium 7.7 mg/dL (8.5-10.1); Potassium 4.3 mmol/L (3.5-5.1)
[2018-06-23] MEDS: Ensure Enlive Chocolate 8oz Bottle PO SCH ×3 (08:00→18:00)
[2018-06-23 09:00] VITALS: BP 117/76
[2018-06-23] MEDS: METOCLOPRAMIDE HCL 5MG/ml INJ 2ml VIAL IV SCH ×2 (10:00→21:28)
[2018-06-23] MEDS: PANTOPRAZOLE 40 MG/10 ML VIAL IV SCH (10:00)
[2018-06-23] MEDS: FLUCONAZOLE 200MG/100ML 100 ML IV SCH ×2 (10:00→11:00)
[2018-06-23] MEDS ORDERED: HYDROmorphone HCL 2 MG/ML VL IV PRN (11:45)
[2018-06-23] MEDS: ENOXAPARIN SOD 40 MG/0.4 ML SYRINGE SC SCH (11:51)
[2018-06-23] MEDS: METOPROLOL TARTRATE 25 MG TAB PO SCH ×2 (11:52→21:29)
[2018-06-23] MEDS: methylPREDNISolone SOD SUCC 40 MG/ML VL IV SCH (11:52)
[2018-06-23] MEDS: POTASSIUM CHLORIDE 20 MEQ in D5W 5% 1,000 ML IV SCH (11:53)
[2018-06-23 13:00] VITALS: BP 120/62
[2018-06-23 13:16] LABS: Basophils # (auto) 0.1 uL; Basophils % (auto) 0.8 % (0.0-2.0); Eosinophils # (auto) 0.1 uL; Eosinophils % (auto) 1.1 % (0.0-7.0); Hematocrit 26.7 % (36.0-46.0); Hemoglobin 8.8 g/dL (12.2-16.2); Lymphocytes # (auto) 1.3 uL; Lymphocytes % (auto) 13.8 % (10.0-50.0); Mean Corpuscular Hemoglobin 30.5 pg (28.0-32.0); Mean Corpuscular Hgb Conc. 32.9 g/dL (32.0-36.0); Mean Corpuscular Volume 92.7 fL (80.0-100.0); Monocytes % (auto) 10.4 % (0.0-12.0); Neutrophils % (auto) 73.9 % (37.0-80.0); Platelet Count (auto) 171 10^3/uL (140-450); Red Blood Cells 2.88 10^6/uL (4.0-5.20); White Blood Cell 9.5 10^3/uL (4.4-10.8)
[2018-06-23] MEDS ORDERED: LEVOFLOXACIN 750MG 150 ML IV ONE (13:30)
[2018-06-23] MEDS: HYDROmorphone HCL 2 MG/ML VL IV PRN ×2 (17:07→21:36)
[2018-06-23 17:25] VITALS: BP 141/83
[2018-06-23] MEDS ORDERED: PPN PER PHARMACY IV NR ×11 (20:00)
[2018-06-23] MEDS: ALBUTEROL SULF 2.5 MG/0.5ML(0.5%) NEB SOLN NEB PRN (22:49)
[2018-06-23 23:08] VITALS: BP 125/75
[2018-06-24] VITALS (7 sets, daily range): BP systolic 94–140; BP diastolic 48–79
[2018-06-24] MEDS: PROCHLORPERAZINE EDISYLATE 5 MG/ML 2ML VIAL IV PRN (00:02)
[2018-06-24] MEDS: IPRATROPIUM BROM 0.5 MG/2.5ML INH SOL NEB SCH ×6 (02:30→22:21)
[2018-06-24] MEDS: HYDROmorphone HCL 2 MG/ML VL IV PRN (02:35)
[2018-06-24] MEDS: ACCU-CHEK COMFORT CURVE STRIP VI SCH ×4 (03:30→18:26)
[2018-06-24] MEDS: InsuLIN REG 1unit/0.01ml Soln (100units/ml) SC SCH ×4 (05:58→18:00)
[2018-06-24] MEDS: ALBUTEROL SULF 2.5 MG/0.5ML(0.5%) NEB SOLN NEB SCH ×3 (06:47→22:21)
[2018-06-24] MEDS: Ensure Enlive Chocolate 8oz Bottle PO SCH ×3 (08:00→18:00)
[2018-06-24 08:25] LABS: Basophils # (auto) 0 uL; Basophils % (auto) 0.1 % (0.0-2.0); Eosinophils # (auto) 0 uL; Eosinophils % (auto) 0.4 % (0.0-7.0); Hematocrit 31.6 % (36.0-46.0); Hemoglobin 10.8 g/dL (12.2-16.2); Lymphocytes # (auto) 1.1 uL; Lymphocytes % (auto) 12.2 % (10.0-50.0); Mean Corpuscular Hemoglobin 31.3 pg (28.0-32.0); Mean Corpuscular Hgb Conc. 34.2 g/dL (32.0-36.0); Mean Corpuscular Volume 91.6 fL (80.0-100.0); Monocytes # (auto) 0.5 uL; Monocytes % (auto) 5.9 % (0.0-12.0); Neutrophils # (auto) 7.2 uL; Neutrophils % (auto) 81.4 % (37.0-80.0); Platelet Count (auto) 238 10^3/uL (140-450); Red Blood Cells 3.45 10^6/uL (4.0-5.20); Red Cell Distribution Width 16.1 % (11.8-14.3); White Blood Cell 8.9 10^3/uL (4.4-10.8)
[2018-06-24 08:47] LABS: Albumin 1.5 g/dL (3.4-5.0); BUN/Creatinine Ratio 25.8; Bilirubin, Total 0.4 mg/dL (0.2-1.0); Calcium 7.8 mg/dL (8.5-10.1); Phosphorus 2.8 mg/dL (2.5-4.90); Potassium 4.4 mmol/L (3.5-5.1); Total Protein 5.3 g/dL (6.4-8.2)
[2018-06-24] MEDS: methylPREDNISolone SOD SUCC 40 MG/ML VL IV SCH (11:34)
[2018-06-24] MEDS: PANTOPRAZOLE 40 MG/10 ML VIAL IV SCH (11:34)
[2018-06-24] MEDS: ENOXAPARIN SOD 40 MG/0.4 ML SYRINGE SC SCH (11:34)
[2018-06-24] MEDS: METOCLOPRAMIDE HCL 5MG/ml INJ 2ml VIAL IV SCH ×2 (11:34→22:25)
[2018-06-24] MEDS: LEVOFLOXACIN 750MG 150 ML IV SCH (11:35)
[2018-06-24] MEDS: METOPROLOL TARTRATE 25 MG TAB PO SCH ×2 (13:01→22:26)
[2018-06-24] MEDS ORDERED: IOHEXOL 350 MG/ML 100ML IJ ONE (17:10)
[2018-06-24] MEDS ORDERED: FAT EMULSION IV NR ×11 (20:00)
[2018-06-24] MEDS ORDERED: SODIUM PHOSPHATES IV NR ×11 (20:00)
[2018-06-24] MEDS ORDERED: SODIUM ACETATE IV NR ×11 (20:00)
[2018-06-24] MEDS ORDERED: [UNRECOGNIZED DRUG - OTHER] IV NR ×11 (20:00)
[2018-06-24] MEDS: POTASSIUM CHLORIDE 20 MEQ in D5W 5% 1,000 ML IV SCH (20:10)
[2018-06-25] MEDS: ALBUTEROL SULF 2.5 MG/0.5ML(0.5%) NEB SOLN NEB PRN (02:39)
[2018-06-25] MEDS: IPRATROPIUM BROM 0.5 MG/2.5ML INH SOL NEB SCH ×6 (02:39→22:18)
[2018-06-25 05:00] VITALS: BP 119/62
[2018-06-25] MEDS: InsuLIN REG 1unit/0.01ml Soln (100units/ml) SC SCH ×4 (06:00→17:50)
[2018-06-25] MEDS: ACCU-CHEK COMFORT CURVE STRIP VI SCH ×4 (06:12→17:50)
[2018-06-25] MEDS: ALBUTEROL SULF 2.5 MG/0.5ML(0.5%) NEB SOLN NEB SCH ×3 (07:25→19:16)
[2018-06-25] MEDS: POTASSIUM CHLORIDE 20 MEQ in D5W 5% 1,000 ML IV SCH (07:51)
[2018-06-25] MEDS: Ensure Enlive Chocolate 8oz Bottle PO SCH ×3 (07:59→12:56)
[2018-06-25 08:14] LABS: Albumin 1.3 g/dL (3.4-5.0); BUN/Creatinine Ratio 25.4; Bilirubin, Total 0.3 mg/dL (0.2-1.0); Calcium 6.9 mg/dL (8.5-10.1); Magnesium 2.3 mg/dL (1.6-2.6); Phosphorus 2.9 mg/dL (2.5-4.90); Potassium 5.3 mmol/L (3.5-5.1); Total Protein 4.5 g/dL (6.4-8.2)
[2018-06-25 09:00] VITALS: BP 113/62
[2018-06-25] MEDS: METOPROLOL TARTRATE 25 MG TAB PO SCH ×2 (10:00→21:56)
[2018-06-25] MEDS: LEVOFLOXACIN 750MG 150 ML IV SCH (10:03)
[2018-06-25] MEDS: ENOXAPARIN SOD 40 MG/0.4 ML SYRINGE SC SCH (10:06)
[2018-06-25] MEDS: PANTOPRAZOLE 40 MG/10 ML VIAL IV SCH (10:07)
[2018-06-25] MEDS: methylPREDNISolone SOD SUCC 40 MG/ML VL IV SCH (10:07)
[2018-06-25] MEDS: METOCLOPRAMIDE HCL 5MG/ml INJ 2ml VIAL IV SCH ×2 (10:07→21:53)
[2018-06-25] MEDS: SODIUM CHLORIDE 0.9% 1,000 ML IV SCH (10:08)
[2018-06-25 11:16] LABS: INR 1.12 (0.9-1.15); Prothrombin Time 11.9 sec (9.27-12.13)
[2018-06-25] MEDS: POTASSIUM CHL 20MEQ/100ML 100 ML IV SCH ×2 (11:53→13:38)
[2018-06-25 13:00] VITALS: BP 120/71
[2018-06-25 17:00] VITALS: BP 108/67
[2018-06-25] MEDS ORDERED: PPN PER PHARMACY IV NR ×12 (20:00)
[2018-06-25 22:00] VITALS: BP 134/74
[2018-06-25] MEDS: PROCHLORPERAZINE EDISYLATE 5 MG/ML 2ML VIAL IV PRN (22:00)
[2018-06-25] MEDS: HYDROmorphone HCL 2 MG/ML VL IV PRN (22:01)
[2018-06-26] MEDS: IPRATROPIUM BROM 0.5 MG/2.5ML INH SOL NEB SCH ×6 (02:17→21:52)
[2018-06-26] MEDS: ALBUTEROL SULF 2.5 MG/0.5ML(0.5%) NEB SOLN NEB PRN ×2 (02:17→06:28)
[2018-06-26 05:00] VITALS: BP 107/52
[2018-06-26] MEDS: InsuLIN REG 1unit/0.01ml Soln (100units/ml) SC SCH ×5 (06:00→23:42)
[2018-06-26] MEDS: SODIUM CHLORIDE 0.9% 1,000 ML IV SCH ×2 (06:24→17:39)
[2018-06-26] MEDS: ALBUTEROL SULF 2.5 MG/0.5ML(0.5%) NEB SOLN NEB SCH ×3 (06:26→21:52)
[2018-06-26] MEDS: ACCU-CHEK COMFORT CURVE STRIP VI SCH ×5 (06:27→23:42)
[2018-06-26] MEDS: Ensure Enlive Chocolate 8oz Bottle PO SCH ×3 (08:00→17:38)
[2018-06-26] MEDS ORDERED: ACETAMINOPHEN 650 mg PER 20 mL UD GT PRN (08:15)
[2018-06-26 08:45] VITALS: BP 125/68
[2018-06-26 10:50] LABS: Albumin 1.5 g/dL (3.4-5.0); BUN/Creatinine Ratio 24.3; Bilirubin, Total 0.4 mg/dL (0.2-1.0); Calcium 7.2 mg/dL (8.5-10.1); Magnesium 2.3 mg/dL (1.6-2.6); Phosphorus 2.9 mg/dL (2.5-4.90); Potassium 3.9 mmol/L (3.5-5.1); Total Protein 5.1 g/dL (6.4-8.2)
[2018-06-26] MEDS: LEVOFLOXACIN 750MG 150 ML IV SCH (10:51)
[2018-06-26] MEDS: PANTOPRAZOLE 40 MG/10 ML VIAL IV SCH (10:51)
[2018-06-26] MEDS: METOCLOPRAMIDE HCL 5MG/ml INJ 2ml VIAL IV SCH ×2 (10:52→21:30)
[2018-06-26] MEDS: methylPREDNISolone SOD SUCC 40 MG/ML VL IV SCH (10:52)
[2018-06-26 10:53] LABS: Hemoglobin 8.3 g/dL (12.2-16.2)
[2018-06-26] MEDS: METOPROLOL TARTRATE 25 MG TAB PO SCH ×2 (10:53→21:30)
[2018-06-26 10:54] LABS: Hematocrit 25.2 % (36.0-46.0); Mean Corpuscular Hemoglobin 30.7 pg (28.0-32.0); Mean Corpuscular Volume 93.1 fL (80.0-100.0); Platelet Count (auto) 262 10^3/uL (140-450); Red Blood Cells 2.71 10^6/uL (4.0-5.20); Red Cell Distribution Width 16.5 % (11.8-14.3); White Blood Cell 15.1 10^3/uL (4.4-10.8)
[2018-06-26] MEDS: ENOXAPARIN SOD 40 MG/0.4 ML SYRINGE SC SCH (10:54)
[2018-06-26 11:01] LABS: Basophils % (manual) 0 (0.0-2.0); Blast Cells 0; Eosinophils % (manual) 0 (0-7); Metamyelocytes % 0; Myelocytes % 0; Promyelocytes % 0; Reactive Lymphocytes 0
[2018-06-26 11:46] LABS: Band Neutrophils % (manual) 6; Lymphocytes % (manual) 2 (10.0-50.0); Monocytes % (manual) 2 (0-12)
[2018-06-26] MEDS ORDERED: LIDOCAINE 1% (LOCAL ANESTH.) PF 5ml SDV ID ONE (13:15)
[2018-06-26 16:29] VITALS: BP 106/62
[2018-06-26] MEDS ORDERED: PPN PER PHARMACY IV NR ×12 (20:00)
[2018-06-26] MEDS: SODIUM CHLOR 0.9% PF (SALINE LOCK) 10ML VIAL/SYR IV SCH (21:30)
[2018-06-26 22:00] VITALS: BP 104/65
[2018-06-27] MEDS: HYDROmorphone HCL 2 MG/ML VL IV PRN ×4 (01:55→22:11)
[2018-06-27] MEDS: IPRATROPIUM BROM 0.5 MG/2.5ML INH SOL NEB SCH ×6 (01:58→22:14)
[2018-06-27 05:00] VITALS: BP 105/65
[2018-06-27] MEDS: InsuLIN REG 1unit/0.01ml Soln (100units/ml) SC SCH ×3 (06:00→18:50)
[2018-06-27] MEDS: ACCU-CHEK COMFORT CURVE STRIP VI SCH ×3 (06:14→18:47)
[2018-06-27 06:21] LABS: Basophils # (auto) 0 uL; Eosinophils # (auto) 0 uL; Eosinophils % (auto) 0.1 % (0.0-7.0); Hemoglobin 7.9 g/dL (12.2-16.2); Lymphocytes # (auto) 0.5 uL; Monocytes # (auto) 0.5 uL; Neutrophils # (auto) 7.7 uL; White Blood Cell 8.7 10^3/uL (4.4-10.8)
[2018-06-27 06:24] LABS: Hematocrit 23.4 % (36.0-46.0); Lymphocytes % (auto) 6.1 % (10.0-50.0); Mean Corpuscular Hemoglobin 31.2 pg (28.0-32.0); Mean Corpuscular Hgb Conc. 33.8 g/dL (32.0-36.0); Mean Corpuscular Volume 92.3 fL (80.0-100.0); Monocytes % (auto) 5.9 % (0.0-12.0); Neutrophils % (auto) 87.9 % (37.0-80.0); Nucleated Red Blood Cells % 0.2 %; Platelet Count (auto) 165 10^3/uL (140-450); Red Blood Cells 2.54 10^6/uL (4.0-5.20); Red Cell Distribution Width 16.4 % (11.8-14.3)
[2018-06-27 06:44] LABS: Albumin 1.4 g/dL (3.4-5.0); Bilirubin, Total 0.2 mg/dL (0.2-1.0); Calcium 7.1 mg/dL (8.5-10.1); Magnesium 2.2 mg/dL (1.6-2.6); Pre Albumin 8.5 mg/dL (20.0-40.0); Total Protein 4.6 g/dL (6.4-8.2)
[2018-06-27] MEDS: Ensure Enlive Chocolate 8oz Bottle PO SCH ×3 (07:22→18:00)
[2018-06-27] MEDS: ALBUTEROL SULF 2.5 MG/0.5ML(0.5%) NEB SOLN NEB SCH ×3 (07:42→18:37)
[2018-06-27 08:10] VITALS: BP 110/63
[2018-06-27] MEDS ORDERED: TPN PER PHARMACY 0 ML IV SCH (09:30)
[2018-06-27] MEDS: methylPREDNISolone SOD SUCC 40 MG/ML VL IV SCH (10:07)
[2018-06-27] MEDS: LEVOFLOXACIN 750MG 150 ML IV SCH (10:07)
[2018-06-27] MEDS: PANTOPRAZOLE 40 MG/10 ML VIAL IV SCH (10:07)
[2018-06-27] MEDS: METOCLOPRAMIDE HCL 5MG/ml INJ 2ml VIAL IV SCH ×2 (10:07→21:32)
[2018-06-27] MEDS: ENOXAPARIN SOD 40 MG/0.4 ML SYRINGE SC SCH (10:07)
[2018-06-27] MEDS: SODIUM CHLOR 0.9% PF (SALINE LOCK) 10ML VIAL/SYR IV SCH ×2 (10:08→21:34)
[2018-06-27] MEDS: METOPROLOL TARTRATE 25 MG TAB PO SCH ×2 (10:09→21:33)
[2018-06-27] MEDS: SODIUM CHLORIDE 0.9% 1,000 ML IV SCH (10:09)
[2018-06-27 11:28] VITALS: BP 117/74
[2018-06-27 16:52] VITALS: BP 118/61
[2018-06-27] MEDS ORDERED: TPN PER PHARMACY IV NR ×12 (20:00)
[2018-06-27 21:45] VITALS: BP 123/62
[2018-06-27 22:00] VITALS: BP 123/62
[2018-06-28] MEDS: ACCU-CHEK COMFORT CURVE STRIP VI SCH ×4 (00:53→17:48)
[2018-06-28] MEDS: IPRATROPIUM BROM 0.5 MG/2.5ML INH SOL NEB SCH ×6 (02:19→22:00)
[2018-06-28] MEDS: SODIUM CHLORIDE 0.9% 1,000 ML IV SCH (04:20)
[2018-06-28] MEDS: HYDROmorphone HCL 2 MG/ML VL IV PRN ×3 (04:21→22:30)
[2018-06-28 05:00] VITALS: BP 110/72
[2018-06-28] MEDS: InsuLIN REG 1unit/0.01ml Soln (100units/ml) SC SCH ×4 (06:00→17:48)
[2018-06-28] MEDS: ALBUTEROL SULF 2.5 MG/0.5ML(0.5%) NEB SOLN NEB SCH ×3 (06:35→22:00)
[2018-06-28 07:52] LABS: Basophils # (auto) 0 uL; Basophils % (auto) 0.1 % (0.0-2.0); Eosinophils # (auto) 0.1 uL; Eosinophils % (auto) 0.6 % (0.0-7.0); Hematocrit 26.9 % (36.0-46.0); Lymphocytes # (auto) 1.3 uL; Lymphocytes % (auto) 10.3 % (10.0-50.0); Mean Corpuscular Hemoglobin 30.6 pg (28.0-32.0); Mean Corpuscular Hgb Conc. 33.5 g/dL (32.0-36.0); Mean Corpuscular Volume 91.5 fL (80.0-100.0); Monocytes # (auto) 0.8 uL; Monocytes % (auto) 6.3 % (0.0-12.0); Neutrophils # (auto) 10.8 uL; Neutrophils % (auto) 82.7 % (37.0-80.0); Nucleated Red Blood Cells % 0.1 %; Platelet Count (auto) 141 10^3/uL (140-450); Red Blood Cells 2.94 10^6/uL (4.0-5.20); Red Cell Distribution Width 16.6 % (11.8-14.3)
[2018-06-28 08:07] LABS: BUN/Creatinine Ratio 42.6; Calcium 7.4 mg/dL (8.5-10.1); Magnesium 2.5 mg/dL (1.6-2.6); Phosphorus 3.1 mg/dL (2.5-4.90); Potassium 4.3 mmol/L (3.5-5.1)
[2018-06-28 09:00] VITALS: BP 108/78
[2018-06-28] MEDS: METOPROLOL TARTRATE 25 MG TAB PO SCH ×2 (10:00→22:45)
[2018-06-28] MEDS: METOCLOPRAMIDE HCL 5MG/ml INJ 2ml VIAL IV SCH (10:00)
[2018-06-28] MEDS: ENOXAPARIN SOD 40 MG/0.4 ML SYRINGE SC SCH (10:00)
[2018-06-28] MEDS: LEVOFLOXACIN 750MG 150 ML IV SCH (10:01)
[2018-06-28] MEDS: methylPREDNISolone SOD SUCC 40 MG/ML VL IV SCH (10:01)
[2018-06-28] MEDS: PANTOPRAZOLE 40 MG/10 ML VIAL IV SCH (10:01)
[2018-06-28] MEDS: SODIUM CHLOR 0.9% PF (SALINE LOCK) 10ML VIAL/SYR IV SCH ×2 (10:20→22:41)
[2018-06-28] MEDS: Ensure Enlive Chocolate 8oz Bottle PO SCH ×3 (10:20→17:49)
[2018-06-28 13:00] VITALS: BP 115/76
[2018-06-28] MEDS ORDERED: LORazepam 2MG/ML-1ML VIAL IV PRN (16:15)
[2018-06-28] MEDS ORDERED: HYDROmorphone HCL 2 MG/ML VL IV PRN (16:15)
[2018-06-28] MEDS ORDERED: METOCLOPRAMIDE HCL 5MG/ml INJ 2ml VIAL IV PRN (16:15)
[2018-06-28 17:00] VITALS: BP 114/66
[2018-06-28] MEDS ORDERED: TPN PER PHARMACY IV NR ×11 (20:00)
[2018-06-28 22:00] VITALS: BP 127/75
[2018-06-28] MEDS: AMITRIPTYLINE HCL 25 MG TAB PO SCH (22:41)
[2018-06-29] MEDS: ACCU-CHEK COMFORT CURVE STRIP VI SCH ×4 (00:17→18:24)
[2018-06-29] MEDS: IPRATROPIUM BROM 0.5 MG/2.5ML INH SOL NEB SCH ×6 (01:45→22:32)
[2018-06-29 05:00] VITALS: BP 132/75
[2018-06-29] MEDS: InsuLIN REG 1unit/0.01ml Soln (100units/ml) SC SCH ×4 (05:35→18:00)
[2018-06-29] MEDS: HYDROmorphone HCL 2 MG/ML VL IV PRN ×2 (05:36→21:58)
[2018-06-29] MEDS: ALBUTEROL SULF 2.5 MG/0.5ML(0.5%) NEB SOLN NEB SCH ×3 (06:29→22:32)
[2018-06-29] MEDS: Ensure Enlive Chocolate 8oz Bottle PO SCH ×3 (08:00→18:24)
[2018-06-29 08:52] LABS: Basophils # (auto) 0 uL; Eosinophils # (auto) 0.1 uL; Eosinophils % (auto) 0.6 % (0.0-7.0); Hematocrit 26.9 % (36.0-46.0); Lymphocytes # (auto) 1.6 uL; Lymphocytes % (auto) 13.5 % (10.0-50.0); Mean Corpuscular Hemoglobin 30.5 pg (28.0-32.0); Mean Corpuscular Hgb Conc. 33.5 g/dL (32.0-36.0); Mean Corpuscular Volume 90.8 fL (80.0-100.0); Monocytes # (auto) 0.9 uL; Monocytes % (auto) 7.2 % (0.0-12.0); Neutrophils # (auto) 9.4 uL; Neutrophils % (auto) 78.7 % (37.0-80.0); Platelet Count (auto) 154 10^3/uL (140-450); Red Blood Cells 2.96 10^6/uL (4.0-5.20); Red Cell Distribution Width 16.1 % (11.8-14.3); White Blood Cell 11.9 10^3/uL (4.4-10.8)
[2018-06-29 09:00] VITALS: BP 131/62
[2018-06-29 09:09] LABS: Albumin 1.5 g/dL (3.4-5.0); Bilirubin, Total 0.3 mg/dL (0.2-1.0); Calcium 7.1 mg/dL (8.5-10.1); Potassium 4.1 mmol/L (3.5-5.1); Pre Albumin 12.3 mg/dL (20.0-40.0); Total Protein 4.8 g/dL (6.4-8.2)
[2018-06-29] MEDS: LEVOFLOXACIN 750MG 150 ML IV SCH (09:53)
[2018-06-29] MEDS: PANTOPRAZOLE 40 MG TAB PO SCH (09:54)
[2018-06-29] MEDS: ENOXAPARIN SOD 40 MG/0.4 ML SYRINGE SC SCH (09:54)
[2018-06-29] MEDS: predniSONE 5 MG TAB PO SCH (09:54)
[2018-06-29] MEDS: METOPROLOL TARTRATE 25 MG TAB PO SCH ×2 (09:55→21:58)
[2018-06-29] MEDS: HYDROcodone-ACET 10/325MG TAB PO PRN ×3 (10:01→19:50)
[2018-06-29] MEDS: SODIUM CHLOR 0.9% PF (SALINE LOCK) 10ML VIAL/SYR IV SCH ×2 (10:02→21:57)
[2018-06-29 13:38] VITALS: BP 127/73
[2018-06-29 17:36] VITALS: BP 155/63
[2018-06-29] MEDS ORDERED: TPN PER PHARMACY IV NR ×11 (20:00)
[2018-06-29] MEDS: AMITRIPTYLINE HCL 25 MG TAB PO SCH (21:57)
[2018-06-29 22:00] VITALS: BP 122/72
[2018-06-30] MEDS: ACCU-CHEK COMFORT CURVE STRIP VI SCH ×4 (00:28→17:38)
[2018-06-30] MEDS: IPRATROPIUM BROM 0.5 MG/2.5ML INH SOL NEB SCH ×5 (02:42→14:00)
[2018-06-30] MEDS: ALBUTEROL SULF 2.5 MG/0.5ML(0.5%) NEB SOLN NEB SCH ×4 (02:42→22:42)
[2018-06-30 05:39] VITALS: BP 133/61
[2018-06-30] MEDS: InsuLIN REG 1unit/0.01ml Soln (100units/ml) SC SCH ×4 (05:44→17:38)
[2018-06-30] MEDS: HYDROcodone-ACET 10/325MG TAB PO PRN ×3 (05:44→19:40)
[2018-06-30 07:17] LABS: Basophils # (auto) 0 uL; Basophils % (auto) 0.2 % (0.0-2.0); Eosinophils # (auto) 0.1 uL; Eosinophils % (auto) 0.8 % (0.0-7.0); Hematocrit 25.5 % (36.0-46.0); Hemoglobin 8.5 g/dL (12.2-16.2); Lymphocytes % (auto) 15.8 % (10.0-50.0); Mean Corpuscular Hemoglobin 30.4 pg (28.0-32.0); Mean Corpuscular Hgb Conc. 33.2 g/dL (32.0-36.0); Mean Corpuscular Volume 91.3 fL (80.0-100.0); Monocytes # (auto) 1.1 uL; Monocytes % (auto) 9.1 % (0.0-12.0); Neutrophils # (auto) 9.4 uL; Neutrophils % (auto) 74.1 % (37.0-80.0); Nucleated Red Blood Cells % 0.1 %; Platelet Count (auto) 167 10^3/uL (140-450); Red Blood Cells 2.79 10^6/uL (4.0-5.20); Red Cell Distribution Width 16.3 % (11.8-14.3); White Blood Cell 12.6 10^3/uL (4.4-10.8)
[2018-06-30 07:47] LABS: Albumin 1.5 g/dL (3.4-5.0); BUN/Creatinine Ratio 35.6; Bilirubin, Total 0.4 mg/dL (0.2-1.0); Magnesium 1.8 mg/dL (1.6-2.6); Phosphorus 3.1 mg/dL (2.5-4.90); Total Protein 4.6 g/dL (6.4-8.2)
[2018-06-30] MEDS: Ensure Enlive Chocolate 8oz Bottle PO SCH ×3 (08:00→18:00)
[2018-06-30 09:21] VITALS: BP 87/53
[2018-06-30] MEDS: LEVOFLOXACIN 750MG 150 ML IV SCH (09:44)
[2018-06-30] MEDS: PANTOPRAZOLE 40 MG TAB PO SCH (09:44)
[2018-06-30] MEDS: predniSONE 5 MG TAB PO SCH (09:45)
[2018-06-30] MEDS: METOPROLOL TARTRATE 25 MG TAB PO SCH ×2 (09:46→22:46)
[2018-06-30] MEDS: SODIUM CHLOR 0.9% PF (SALINE LOCK) 10ML VIAL/SYR IV SCH ×2 (09:51→22:46)
[2018-06-30] MEDS: ENOXAPARIN SOD 40 MG/0.4 ML SYRINGE SC SCH (09:56)
[2018-06-30] MEDS: ALBUMIN 25% 100 ML IV SCH ×2 (11:58→17:37)
[2018-06-30 13:07] VITALS: BP 107/58
[2018-06-30 16:59] VITALS: BP 119/69
[2018-06-30] MEDS ORDERED: TPN PER PHARMACY IV NR ×11 (20:00)
[2018-06-30 21:40] VITALS: BP 112/70
[2018-06-30 22:00] VITALS: BP 135/77
[2018-06-30] MEDS ORDERED: AMITRIPTYLINE HCL 25 MG TAB ONE ×2 (22:42→22:44)
[2018-06-30] MEDS: AMITRIPTYLINE HCL 25 MG TAB PO SCH (22:46)
[2018-07-01] VITALS (9 sets, daily range): BP systolic 91–131; BP diastolic 55–81
[2018-07-01] MEDS: ALBUMIN 25% 100 ML IV SCH (02:16)
[2018-07-01 05:58] LABS: Basophils # (auto) 0 uL; Eosinophils # (auto) 0.1 uL; Hemoglobin 7.5 g/dL (12.2-16.2); Monocytes # (auto) 0.9 uL; Nucleated Red Blood Cells % 0.1 %
[2018-07-01] MEDS: InsuLIN REG 1unit/0.01ml Soln (100units/ml) SC SCH ×2 (05:58)
[2018-07-01] MEDS: ACCU-CHEK COMFORT CURVE STRIP VI SCH ×2 (05:58)
[2018-07-01 06:00] LABS: Basophils % (auto) 0.2 % (0.0-2.0); Eosinophils % (auto) 1.3 % (0.0-7.0); Hematocrit 21.6 % (36.0-46.0); Lymphocytes # (auto) 2.1 uL; Mean Corpuscular Hemoglobin 31.7 pg (28.0-32.0); Mean Corpuscular Hgb Conc. 34.8 g/dL (32.0-36.0); Mean Corpuscular Volume 91.2 fL (80.0-100.0); Monocytes % (auto) 9.4 % (0.0-12.0); Neutrophils # (auto) 6.3 uL; Neutrophils % (auto) 67.1 % (37.0-80.0); Platelet Count (auto) 192 10^3/uL (140-450); Red Blood Cells 2.37 10^6/uL (4.0-5.20); Red Cell Distribution Width 16.4 % (11.8-14.3)
[2018-07-01 06:01] LABS: White Blood Cell 9.5 10^3/uL (4.4-10.8)
[2018-07-01] MEDS: ALBUTEROL SULF 2.5 MG/0.5ML(0.5%) NEB SOLN NEB SCH (06:31)
[2018-07-01 06:33] LABS: Albumin 2.2 g/dL (3.4-5.0); BUN/Creatinine Ratio 34.1; Bilirubin, Total 0.4 mg/dL (0.2-1.0); Calcium 7.4 mg/dL (8.5-10.1); Potassium 4.1 mmol/L (3.5-5.1); Total Protein 5.1 g/dL (6.4-8.2)
[2018-07-01] MEDS: Ensure Enlive Chocolate 8oz Bottle PO SCH ×3 (09:07→18:17)
[2018-07-01] MEDS: METOPROLOL TARTRATE 25 MG TAB PO SCH ×2 (10:00→21:53)
[2018-07-01] MEDS: predniSONE 5 MG TAB PO SCH (10:11)
[2018-07-01] MEDS: PANTOPRAZOLE 40 MG TAB PO SCH (10:11)
[2018-07-01] MEDS: SODIUM CHLOR 0.9% PF (SALINE LOCK) 10ML VIAL/SYR IV SCH ×2 (10:11→21:35)
[2018-07-01] MEDS: LEVOFLOXACIN 750MG 150 ML IV SCH (10:11)
[2018-07-01] MEDS: ENOXAPARIN SOD 40 MG/0.4 ML SYRINGE SC SCH (10:12)
[2018-07-01] MEDS ORDERED: BUMETANIDE (0.25MG/ML) 4 ML VIAL IV ONE (10:15)
[2018-07-01] MEDS: HYDROcodone-ACET 10/325MG TAB PO PRN ×2 (10:26→18:27)
[2018-07-01] MEDS: BUMETANIDE (0.25MG/ML) 4 ML VIAL IV SCH (18:16)
[2018-07-01] MEDS: AMITRIPTYLINE HCL 25 MG TAB PO SCH (21:35)
[2018-07-02] VITALS (9 sets, daily range): BP systolic 104–138; BP diastolic 51–79
[2018-07-02] MEDS: BUMETANIDE (0.25MG/ML) 4 ML VIAL IV SCH ×2 (06:13→18:30)
[2018-07-02] MEDS: ALBUTEROL SULF 2.5 MG/0.5ML(0.5%) NEB SOLN NEB PRN (09:03)
[2018-07-02] MEDS: LEVOFLOXACIN 750MG 150 ML IV SCH (11:13)
[2018-07-02] MEDS: Ensure Enlive Chocolate 8oz Bottle PO SCH ×3 (11:13→18:00)
[2018-07-02] MEDS: SODIUM CHLOR 0.9% PF (SALINE LOCK) 10ML VIAL/SYR IV SCH ×2 (11:13→21:49)
[2018-07-02] MEDS: PANTOPRAZOLE 40 MG TAB PO SCH (11:14)
[2018-07-02] MEDS: predniSONE 5 MG TAB PO SCH (11:14)
[2018-07-02] MEDS: METOPROLOL TARTRATE 25 MG TAB PO SCH ×2 (11:14→21:49)
[2018-07-02] MEDS: ENOXAPARIN SOD 40 MG/0.4 ML SYRINGE SC SCH (11:14)
[2018-07-02] MEDS ORDERED: HYDROmorphone HCL 2 MG/ML VL IV PRN (11:15)
[2018-07-02 11:44] LABS: Hemoglobin 8.9 g/dL (12.2-16.2)
[2018-07-02] MEDS: HYDROcodone-ACET 10/325MG TAB PO PRN ×2 (18:33→22:30)
[2018-07-02] MEDS: AMITRIPTYLINE HCL 25 MG TAB PO SCH (21:48)
[2018-07-03 05:01] VITALS: BP 127/86
[2018-07-03 05:05] LABS: Hematocrit 29.3 % (36.0-46.0); Hemoglobin 10.3 g/dL (12.2-16.2)
[2018-07-03 05:24] LABS: Albumin 2.1 g/dL (3.4-5.0); BUN/Creatinine Ratio 23.3; Calcium 7.4 mg/dL (8.5-10.1); Potassium 3.5 mmol/L (3.5-5.1)
[2018-07-03] MEDS: BUMETANIDE (0.25MG/ML) 4 ML VIAL IV SCH ×2 (05:49→18:22)
[2018-07-03] MEDS: Pro-Stat SF 30ml Vanilla PO SCH ×2 (08:00→18:00)
[2018-07-03] MEDS ORDERED: Ensure Enlive Strawberry 8oz Bottle PO SCH (08:00)
[2018-07-03 09:00] VITALS: BP 139/82
[2018-07-03] MEDS: LEVOFLOXACIN 750MG 150 ML IV SCH (09:32)
[2018-07-03] MEDS: predniSONE 5 MG TAB PO SCH (09:33)
[2018-07-03] MEDS: PANTOPRAZOLE 40 MG TAB PO SCH (09:33)
[2018-07-03] MEDS: METOPROLOL TARTRATE 25 MG TAB PO SCH ×2 (09:33→22:27)
[2018-07-03] MEDS: HYDROcodone-ACET 10/325MG TAB PO PRN ×3 (09:34→22:26)
[2018-07-03] MEDS: ENOXAPARIN SOD 40 MG/0.4 ML SYRINGE SC SCH (09:34)
[2018-07-03] MEDS: SODIUM CHLOR 0.9% PF (SALINE LOCK) 10ML VIAL/SYR IV SCH ×2 (09:34→22:27)
[2018-07-03] MEDS: Ensure Enlive Chocolate 8oz Bottle PO SCH ×3 (09:58→18:22)
[2018-07-03 13:00] VITALS: BP 105/52
[2018-07-03 17:00] VITALS: BP 108/71
[2018-07-03] MEDS: DOCUSATE SOD 100 MG CAP PO SCH (18:30)
[2018-07-03 21:52] VITALS: BP 130/75
[2018-07-03] MEDS: AMITRIPTYLINE HCL 25 MG TAB PO SCH (22:27)
[2018-07-03] MEDS: POTASSIUM CHL 20 Meq TABLET PO SCH (22:27)
[2018-07-04 00:04] VITALS: BP 130/75
[2018-07-04 05:00] VITALS: BP 113/68
[2018-07-04] MEDS: BUMETANIDE (0.25MG/ML) 4 ML VIAL IV SCH (06:45)
[2018-07-04] MEDS: Pro-Stat SF 30ml Vanilla PO SCH ×2 (08:00→18:00)
[2018-07-04 09:00] VITALS: BP 145/87
[2018-07-04] MEDS ORDERED: LEVOFLOXACIN 250 MG TAB PO SCH (10:00)
[2018-07-04] MEDS: DOCUSATE SOD 100 MG CAP PO SCH ×2 (10:36→21:48)
[2018-07-04] MEDS: PANTOPRAZOLE 40 MG TAB PO SCH (10:36)
[2018-07-04] MEDS: POTASSIUM CHL 20 Meq TABLET PO SCH (10:37)
[2018-07-04] MEDS: predniSONE 5 MG TAB PO SCH (10:37)
[2018-07-04] MEDS: METOPROLOL TARTRATE 25 MG TAB PO SCH ×2 (10:37→22:13)
[2018-07-04] MEDS: Ensure Enlive Chocolate 8oz Bottle PO SCH ×3 (10:38→18:04)
[2018-07-04] MEDS: SODIUM CHLOR 0.9% PF (SALINE LOCK) 10ML VIAL/SYR IV SCH ×2 (10:38→21:49)
[2018-07-04] MEDS: ENOXAPARIN SOD 40 MG/0.4 ML SYRINGE SC SCH (10:39)
[2018-07-04] MEDS: HYDROcodone-ACET 10/325MG TAB PO PRN ×3 (11:03→21:49)
[2018-07-04 13:00] VITALS: BP 128/71
[2018-07-04 17:00] VITALS: BP 124/74
[2018-07-04] MEDS: LACTULOSE 20Gm/30ML SOLN PO PRN (18:03)
[2018-07-04] MEDS: AMITRIPTYLINE HCL 25 MG TAB PO SCH (21:48)
[2018-07-04 22:00] VITALS: BP 128/81
[2018-07-05 05:00] VITALS: BP 108/64
[2018-07-05] MEDS: Ensure Enlive Chocolate 8oz Bottle PO SCH ×3 (08:00→18:00)
[2018-07-05 08:46] VITALS: BP 110/68
[2018-07-05] MEDS: predniSONE 5 MG TAB PO SCH (10:23)
[2018-07-05] MEDS: SODIUM CHLOR 0.9% PF (SALINE LOCK) 10ML VIAL/SYR IV SCH ×2 (10:23→21:51)
[2018-07-05] MEDS: DOCUSATE SOD 100 MG CAP PO SCH ×2 (10:23→21:50)
[2018-07-05] MEDS: Pro-Stat SF 30ml Vanilla PO SCH ×2 (10:23→18:00)
[2018-07-05] MEDS: LEVOFLOXACIN 250 MG TAB PO SCH (10:24)
[2018-07-05] MEDS: METOPROLOL TARTRATE 25 MG TAB PO SCH ×2 (10:24→21:50)
[2018-07-05] MEDS: PANTOPRAZOLE 40 MG TAB PO SCH (10:24)
[2018-07-05] MEDS: HYDROcodone-ACET 10/325MG TAB PO PRN ×2 (10:25→14:57)
[2018-07-05] MEDS: LACTULOSE 20Gm/30ML SOLN PO PRN (10:25)
[2018-07-05] MEDS: ENOXAPARIN SOD 40 MG/0.4 ML SYRINGE SC SCH (10:25)
[2018-07-05 13:00] VITALS: BP 133/95
[2018-07-05 16:39] VITALS: BP 134/86
[2018-07-05] MEDS: AMITRIPTYLINE HCL 25 MG TAB PO SCH (21:50)
[2018-07-05 22:00] VITALS: BP 110/74
[2018-07-06 05:00] VITALS: BP 113/79
[2018-07-06 09:10] VITALS: BP 130/73
[2018-07-06] MEDS: LEVOFLOXACIN 250 MG TAB PO SCH (09:55)
[2018-07-06] MEDS: predniSONE 5 MG TAB PO SCH (09:55)
[2018-07-06] MEDS: DOCUSATE SOD 100 MG CAP PO SCH ×2 (09:55→21:57)
[2018-07-06] MEDS: PANTOPRAZOLE 40 MG TAB PO SCH (09:55)
[2018-07-06] MEDS: ENOXAPARIN SOD 40 MG/0.4 ML SYRINGE SC SCH (09:55)
[2018-07-06] MEDS: METOPROLOL TARTRATE 25 MG TAB PO SCH ×2 (09:56→21:57)
[2018-07-06] MEDS: Pro-Stat SF 30ml Vanilla PO SCH ×2 (10:08→18:26)
[2018-07-06] MEDS: Ensure Enlive Chocolate 8oz Bottle PO SCH ×3 (10:08→18:26)
[2018-07-06] MEDS: SODIUM CHLOR 0.9% PF (SALINE LOCK) 10ML VIAL/SYR IV SCH ×2 (10:09→21:58)
[2018-07-06 13:00] VITALS: BP 120/74
[2018-07-06 17:00] VITALS: BP 128/79
[2018-07-06] MEDS: HYDROcodone-ACET 10/325MG TAB PO PRN (17:27)
[2018-07-06] MEDS: AMITRIPTYLINE HCL 25 MG TAB PO SCH (21:58)
[2018-07-06 22:00] VITALS: BP 122/65
[2018-07-07 04:05] VITALS: BP 130/78
[2018-07-07 05:48] VITALS: BP 120/72
[2018-07-07] MEDS: Pro-Stat SF 30ml Vanilla PO SCH ×2 (08:00→19:40)
[2018-07-07] MEDS: Ensure Enlive Chocolate 8oz Bottle PO SCH ×3 (08:00→19:40)
[2018-07-07 08:42] VITALS: BP 158/83
[2018-07-07] MEDS: ENOXAPARIN SOD 40 MG/0.4 ML SYRINGE SC SCH (11:52)
[2018-07-07] MEDS: METOPROLOL TARTRATE 25 MG TAB PO SCH ×2 (11:52→22:19)
[2018-07-07] MEDS: PANTOPRAZOLE 40 MG TAB PO SCH (11:52)
[2018-07-07] MEDS: DOCUSATE SOD 100 MG CAP PO SCH ×2 (11:53→22:18)
[2018-07-07] MEDS: HYDROcodone-ACET 10/325MG TAB PO PRN (11:53)
[2018-07-07] MEDS: predniSONE 5 MG TAB PO SCH (11:54)
[2018-07-07] MEDS: SODIUM CHLOR 0.9% PF (SALINE LOCK) 10ML VIAL/SYR IV SCH ×2 (12:01→22:19)
[2018-07-07 12:30] VITALS: BP 115/83
[2018-07-07 15:59] VITALS: BP 131/82
[2018-07-07 22:00] VITALS: BP 139/72
[2018-07-07] MEDS: AMITRIPTYLINE HCL 25 MG TAB PO SCH (22:18)
[2018-07-08 05:00] VITALS: BP 134/72
[2018-07-08 06:39] LABS: Basophils # (auto) 0 uL; Basophils % (auto) 0.4 % (0.0-2.0); Eosinophils # (auto) 0 uL; Eosinophils % (auto) 0.3 % (0.0-7.0); Hematocrit 33.7 % (36.0-46.0); Hemoglobin 11.6 g/dL (12.2-16.2); Lymphocytes # (auto) 2.1 uL; Lymphocytes % (auto) 24.6 % (10.0-50.0); Mean Corpuscular Hemoglobin 30.3 pg (28.0-32.0); Mean Corpuscular Hgb Conc. 34.5 g/dL (32.0-36.0); Mean Corpuscular Volume 87.8 fL (80.0-100.0); Monocytes # (auto) 1.1 uL; Monocytes % (auto) 12.5 % (0.0-12.0); Neutrophils # (auto) 5.3 uL; Neutrophils % (auto) 62.2 % (37.0-80.0); Nucleated Red Blood Cells % 0.1 %; Platelet Count (auto) 265 10^3/uL (140-450); Red Blood Cells 3.84 10^6/uL (4.0-5.20); Red Cell Distribution Width 16.1 % (11.8-14.3); White Blood Cell 8.5 10^3/uL (4.4-10.8)
[2018-07-08 07:00] LABS: Potassium 3.3 mmol/L (3.5-5.1)
[2018-07-08 07:16] LABS: BUN/Creatinine Ratio 19.3; Calcium 7.9 mg/dL (8.5-10.1)
[2018-07-08] MEDS: Ensure Enlive Chocolate 8oz Bottle PO SCH ×3 (08:00→18:09)
[2018-07-08] MEDS: Pro-Stat SF 30ml Vanilla PO SCH ×2 (08:00→18:07)
[2018-07-08 09:00] VITALS: BP 123/64
[2018-07-08] MEDS: DOCUSATE SOD 100 MG CAP PO SCH ×2 (09:38→22:06)
[2018-07-08] MEDS: PANTOPRAZOLE 40 MG TAB PO SCH (09:38)
[2018-07-08] MEDS: predniSONE 5 MG TAB PO SCH (09:38)
[2018-07-08] MEDS: ENOXAPARIN SOD 40 MG/0.4 ML SYRINGE SC SCH (09:38)
[2018-07-08] MEDS: METOPROLOL TARTRATE 25 MG TAB PO SCH ×2 (09:38→22:07)
[2018-07-08] MEDS: SODIUM CHLOR 0.9% PF (SALINE LOCK) 10ML VIAL/SYR IV SCH ×2 (10:00→22:05)
[2018-07-08 12:00] VITALS: BP 112/73
[2018-07-08] MEDS: HYDROcodone-ACET 10/325MG TAB PO PRN (12:00)
[2018-07-08] MEDS ORDERED: POTASSIUM EFFERVESENT TAB 25 MEQ PO ONE (15:30)
[2018-07-08 17:00] VITALS: BP 126/79
[2018-07-08] MEDS: AMITRIPTYLINE HCL 25 MG TAB PO SCH (22:06)
[2018-07-08 22:52] VITALS: BP_SYST 101; BP_SYST 109; BP_DIAS 61; BP_DIAS 62
[2018-07-09 05:17] VITALS: BP 121/72
[2018-07-09 05:27] LABS: Basophils # (auto) 0 uL; Basophils % (auto) 0.5 % (0.0-2.0); Eosinophils # (auto) 0 uL; Eosinophils % (auto) 0.5 % (0.0-7.0); Hematocrit 33.2 % (36.0-46.0); Hemoglobin 11.3 g/dL (12.2-16.2); Lymphocytes # (auto) 2.4 uL; Lymphocytes % (auto) 28.1 % (10.0-50.0); Mean Corpuscular Hemoglobin 30.2 pg (28.0-32.0); Mean Corpuscular Hgb Conc. 34.2 g/dL (32.0-36.0); Mean Corpuscular Volume 88.1 fL (80.0-100.0); Monocytes % (auto) 12.2 % (0.0-12.0); Neutrophils % (auto) 58.7 % (37.0-80.0); Nucleated Red Blood Cells % 0.1 %; Platelet Count (auto) 237 10^3/uL (140-450); Red Blood Cells 3.76 10^6/uL (4.0-5.20); Red Cell Distribution Width 15.6 % (11.8-14.3); White Blood Cell 8.5 10^3/uL (4.4-10.8)
[2018-07-09] MEDS ORDERED: SODIUM CHLORIDE 0.9 % NEB SOLN 3ML NEB ONE (05:39)
[2018-07-09 05:43] LABS: Potassium 3.7 mmol/L (3.5-5.1)
[2018-07-09 05:47] LABS: BUN/Creatinine Ratio 18.2
[2018-07-09 08:14] VITALS: BP 127/82
[2018-07-09] MEDS ORDERED: MET25T PO (09:40)
[2018-07-09] MEDS ORDERED: PANT40T PO (09:40)
[2018-07-09] MEDS: Ensure Enlive Chocolate 8oz Bottle PO SCH ×2 (10:02→12:00)
[2018-07-09] MEDS: SODIUM CHLOR 0.9% PF (SALINE LOCK) 10ML VIAL/SYR IV SCH (10:03)
[2018-07-09] MEDS: Pro-Stat SF 30ml Vanilla PO SCH (10:03)
[2018-07-09] MEDS: predniSONE 5 MG TAB PO SCH (10:04)
[2018-07-09] MEDS: DOCUSATE SOD 100 MG CAP PO SCH (10:04)
[2018-07-09] MEDS: ENOXAPARIN SOD 40 MG/0.4 ML SYRINGE SC SCH (10:05)
[2018-07-09] MEDS: PANTOPRAZOLE 40 MG TAB PO SCH (10:05)
[2018-07-09] MEDS: METOPROLOL TARTRATE 25 MG TAB PO SCH (10:05)
[2018-07-09] MEDS: HYDROcodone-ACET 10/325MG TAB PO PRN (10:21)
[2018-07-09 12:14] VITALS: BP 119/73
== END 2018-07-09 18:00 | disposition home health service (06) | DRG 335 ==
LOC: EDBD 13:13 → ER 13:13 → EDUNIT# 13:13 → TELE 13:14 → EDUNIT# 13:14 → TELE-WESTW 22:00 → ICU WEST 06-20 19:57 → TELE-WESTW 06-22 12:44 → WEST WING 06-28 16:27
PROVIDERS: ADMIT Internal Medicine; ATTEND Internal Medicine
PROC: 0DN80ZZ Release Small Intestine, Open Approach (ICD-10-PCS; 2018-06-20)
PROC: 0WQF0ZZ Repair Abdominal Wall, Open Approach (ICD-10-PCS; 2018-06-20)
PROC: 0KNL0ZZ Release Left Abdomen Muscle, Open Approach (ICD-10-PCS; 2018-06-20)
PROC: 0KNK0ZZ Release Right Abdomen Muscle, Open Approach (ICD-10-PCS; 2018-06-20)
PROC: 0BH17EZ Insertion of Endotracheal Airway into Trachea, Via Natural or Artificial Opening (ICD-10-PCS; 2018-06-20)
PROC: 5A1945Z Respiratory Ventilation, 24-96 Consecutive Hours (ICD-10-PCS; 2018-06-20)
PROC: 02HV33Z Insertion of Infusion Device into Superior Vena Cava, Percutaneous Approach (ICD-10-PCS; 2018-06-26)
PROC: 30233N1 Transfusion of Nonautologous Red Blood Cells into Peripheral Vein, Percutaneous Approach (ICD-10-PCS; principal; 2018-07-01)
DX: K43.6 Other and unspecified ventral hernia with obstruction, without gangrene (principal); N17.0 Acute kidney failure with tubular necrosis; A41.9 Sepsis, unspecified organism; E43 Unspecified severe protein-calorie malnutrition; J69.0 Pneumonitis due to inhalation of food and vomit; J96.00 Acute respiratory failure, unspecified whether with hypoxia or hypercapnia; E87.1 Hypo-osmolality and hyponatremia; E87.2 Acidosis; N18.4 Chronic kidney disease, stage 4 (severe); K56.7 Ileus, unspecified; F32.9 Major depressive disorder, single episode, unspecified; E78.5 Hyperlipidemia, unspecified; M06.9 Rheumatoid arthritis, unspecified; D64.9 Anemia, unspecified; D75.1 Secondary polycythemia; E11.21 Type 2 diabetes mellitus with diabetic nephropathy; E11.22 Type 2 diabetes mellitus with diabetic chronic kidney disease; B96.5 Pseudomonas (aeruginosa) (mallei) (pseudomallei) as the cause of diseases classified elsewhere; F17.210 Nicotine dependence, cigarettes, uncomplicated; F41.9 Anxiety disorder, unspecified; G89.29 Other chronic pain; N73.6 Female pelvic peritoneal adhesions (postinfective); I13.10 Hypertensive heart and chronic kidney disease without heart failure, with stage 1 through stage 4 chronic kidney disease, or unspecified chronic kidney disease; I25.10 Atherosclerotic heart disease of native coronary artery without angina pectoris; K80.20 Calculus of gallbladder without cholecystitis without obstruction; I35.0 Nonrheumatic aortic (valve) stenosis; J44.9 Chronic obstructive pulmonary disease, unspecified; Z68.22 Body mass index [BMI] 22.0-22.9, adult; Z88.6 Allergy status to analgesic agent; Z88.1 Allergy status to other antibiotic agents; Z88.2 Allergy status to sulfonamides; Z88.8 Allergy status to other drugs, medicaments and biological substances; Z82.49 Family history of ischemic heart disease and other diseases of the circulatory system; Z85.3 Personal history of malignant neoplasm of breast; Z90.10 Acquired absence of unspecified breast and nipple; Z93.3 Colostomy status; Z95.5 Presence of coronary angioplasty implant and graft; Z79.899 Other long term (current) drug therapy
CPT/HCPCS: 36415; 36569; 36600; 51702; 71045; 71275; 74018; 74176; 74250; 80048; 80053; 80061; 81001; 82040; 82150; 82805; 82962; 83036; 83605; 83690; 83735; 83880; 84100; 84132; 84478; 84484; 85007; 85014; 85018; 85025; 85027; 85610; 85730; 86850; 86900; 86901; 86920; 87040; 87070; 87077; 87081; 87086; 87186; 87205; 88302; 93005; 93306; 93926; 93970; 94002; 94003; 94640; 96361; 96365; 96375; 96376; 97110; 97116; 97530; A6257; C9113; J0610; J0690; J0696; J1450; J1815; J1956; J2250; J2405; J2543; J3480; J3490; J7060; J7131; P9047

== ENCOUNTER 2018-07-16 14:28 | Inpatient (IN) | payer OTHER ==
[~2018-07-16] VITALS: Ht 1 cm; Wt 63.2 kg
[~2018-07-16 14:28] MED LIST changes: +MET25T PO; -METO-535 PO; -OME20T PO; +PANT40T PO; -RANI1TAB6 PO; -TRIA0.25 PO
[2018-07-16 14:50] VITALS: BP 115/69
[2018-07-16] MEDS ORDERED: MORPHINE SULFATE 4 MG/ML SYR/VIAL IV PRN (15:15)
[2018-07-16 15:43] LABS: Basophils # (auto) 0.1 uL; Basophils % (auto) 0.5 % (0.0-2.0); Eosinophils # (auto) 0.1 uL; Eosinophils % (auto) 0.4 % (0.0-7.0); Hematocrit 38.8 % (36.0-46.0); Hemoglobin 12.9 g/dL (12.2-16.2); Lymphocytes # (auto) 4.4 uL; Lymphocytes % (auto) 26.6 % (10.0-50.0); Mean Corpuscular Hemoglobin 29.2 pg (28.0-32.0); Mean Corpuscular Hgb Conc. 33.2 g/dL (32.0-36.0); Mean Corpuscular Volume 88.2 fL (80.0-100.0); Monocytes # (auto) 1.3 uL; Monocytes % (auto) 7.6 % (0.0-12.0); Neutrophils # (auto) 10.8 uL; Neutrophils % (auto) 64.9 % (37.0-80.0); Platelet Count (auto) 230 10^3/uL (140-450); Red Cell Distribution Width 15.9 % (11.8-14.3); White Blood Cell 16.7 10^3/uL (4.4-10.8)
[2018-07-16 15:50] LABS: Albumin 3.2 g/dL (3.4-5.0); Potassium 4.2 mmol/L (3.5-5.1)
[2018-07-16 15:55] LABS: BUN/Creatinine Ratio 14.3; Bilirubin, Total 0.4 mg/dL (0.2-1.0); Calcium 8.9 mg/dL (8.5-10.1); Total Protein 7.2 g/dL (6.4-8.2)
[2018-07-16 16:38] VITALS: BP 120/78
[2018-07-16 17:24] LABS: INR 0.98 (0.9-1.15); Partial Thromboplastin Time 23.9 sec (23.78-33.04); Prothrombin Time 10.7 sec (9.27-12.13)
[2018-07-16] MEDS: AMITRIPTYLINE HCL 25 MG TAB PO SCH (17:44)
[2018-07-16] MEDS: SOD CHL 0.9%/ KCL 20MEQ 1,000 ML IV SCH (17:44)
[2018-07-16] MEDS: SODIUM CHLOR 0.9% PF (SALINE LOCK) 10ML VIAL/SYR IV SCH (17:44)
[2018-07-16] MEDS: GABAPENTIN 300 MG CAP PO SCH (18:42)
[2018-07-16] MEDS ORDERED: INFLUENZA QUAD 2018-2019 0.5 ML SYRG IM ONE (18:45)
[2018-07-16 20:00] VITALS: BP 115/74
[2018-07-16] MEDS: METOPROLOL TARTRATE 25 MG TAB PO SCH (21:12)
[2018-07-16] MEDS: TEMAZEPAM 15 MG CAP PO SCH (21:12)
[2018-07-16 21:39] VITALS: BP 115/74
[2018-07-17 05:00] VITALS: BP 132/70
[2018-07-17] MEDS: SODIUM CHLOR 0.9% PF (SALINE LOCK) 10ML VIAL/SYR IV SCH ×3 (05:19→22:21)
[2018-07-17 06:39] LABS: INR 0.98 (0.9-1.15); Partial Thromboplastin Time 25.5 sec (23.78-33.04); Prothrombin Time 10.5 sec (9.27-12.13)
[2018-07-17] MEDS ORDERED: ceFAZolin 1GM VL ONE (07:22)
[2018-07-17] MEDS ORDERED: BUPIVACAINE 0.75% INJ 10ML MPV SDV IJ ONE (07:22)
[2018-07-17 07:42] LABS: Urine Bacteria FEW /hpf (None Seen); Urine Blood Negative /uL (Negative); Urine Specific Gravity 1.008 (1.001-1.035); Urine WBC 11 /hpf (0 - 5)
[2018-07-17] MEDS ORDERED: SUCCINYLCHOLINE CHLORIDE 20 MG/ML 10ML VIAL IV ONE (08:33)
[2018-07-17] MEDS ORDERED: LIDOCAINE 1% INJ PF 5ML AMP ONE (08:33)
[2018-07-17] MEDS ORDERED: MIDAZOLAM HCL 1MG/1ML-2 ML VIAL ONE (08:36)
[2018-07-17] MEDS ORDERED: METOCLOPRAMIDE HCL 5MG/ml INJ 2ml VIAL ONE (08:37)
[2018-07-17] MEDS ORDERED: ETOMIDATE (2MG/ML) 20ML VIAL IV ONE (08:39)
[2018-07-17] MEDS ORDERED: ROCURONIUM 10MG/ML 10ML VIAL IV ONE (08:40)
[2018-07-17] MEDS ORDERED: fentaNYL CITRATE 100 MCG/2 ML VL ONE (08:51)
[2018-07-17] MEDS ORDERED: SODIUM CHLORIDE LOCK 10 ML ONE ×2 (08:57→10:16)
[2018-07-17] MEDS ORDERED: ePHEDrine SULFATE 50 MG/ML AMP ONE (08:57)
[2018-07-17] MEDS ORDERED: HYDROmorphone HCL 2 MG/ML VL IV PRN (09:00)
[2018-07-17] MEDS ORDERED: NALOXONE HCL 0.4 MG/ML VIAL IV PRN (09:00)
[2018-07-17] MEDS: PANTOPRAZOLE 40 MG TAB PO SCH (10:00)
[2018-07-17] MEDS: BENAZEPRIL HCL 10 MG TAB PO SCH (10:00)
[2018-07-17] MEDS: METOPROLOL TARTRATE 25 MG TAB PO SCH ×2 (10:00→22:22)
[2018-07-17] MEDS: methylPREDNISolone SOD SUCC 40 MG/ML VL IV SCH (10:00)
[2018-07-17] MEDS ORDERED: PHENYLEPHRINE HCL 10 MG/ML VL ONE (10:16)
[2018-07-17] MEDS ORDERED: GLYCOPYRROLATE 0.2 MG/ML 1ML VIAL ONE (11:02)
[2018-07-17] MEDS ORDERED: NEOSTIGMINE 1 MG/ML INJ (10mg/10ML VIAL) ONE (11:02)
[2018-07-17] MEDS: HYDROmorphone HCL 2 MG/ML VL IV PRN ×3 (11:33→11:53)
[2018-07-17 13:00] VITALS: BP 120/68
[2018-07-17] MEDS: MORPHINE SULFATE 4 MG/ML SYR/VIAL IV PRN ×3 (13:52→22:22)
[2018-07-17 17:00] VITALS: BP 107/61
[2018-07-17] MEDS: SOD CHL 0.9%/ KCL 20MEQ 1,000 ML IV SCH (17:43)
[2018-07-17] MEDS: GABAPENTIN 300 MG CAP PO SCH (18:59)
[2018-07-17] MEDS: AMITRIPTYLINE HCL 25 MG TAB PO SCH (19:35)
[2018-07-17] MEDS: HYDROcodone-ACET 10/325MG TAB PO PRN (20:42)
[2018-07-17 22:00] VITALS: BP 145/81
[2018-07-17] MEDS: TEMAZEPAM 15 MG CAP PO SCH (22:22)
[2018-07-18] MEDS: HYDROcodone-ACET 10/325MG TAB PO PRN (04:36)
[2018-07-18] MEDS: SODIUM CHLOR 0.9% PF (SALINE LOCK) 10ML VIAL/SYR IV SCH ×3 (04:50→22:00)
[2018-07-18 05:00] VITALS: BP 130/71
[2018-07-18 05:59] LABS: Basophils # (auto) 0.1 uL; Basophils % (auto) 0.4 % (0.0-2.0); Eosinophils # (auto) 0 uL; Eosinophils % (auto) 0.2 % (0.0-7.0); Hematocrit 35.9 % (36.0-46.0); Lymphocytes # (auto) 4.2 uL; Lymphocytes % (auto) 24.4 % (10.0-50.0); Mean Corpuscular Hemoglobin 29.4 pg (28.0-32.0); Mean Corpuscular Hgb Conc. 33.3 g/dL (32.0-36.0); Monocytes # (auto) 1.2 uL; Monocytes % (auto) 6.7 % (0.0-12.0); Neutrophils # (auto) 11.8 uL; Neutrophils % (auto) 68.3 % (37.0-80.0); Platelet Count (auto) 196 10^3/uL (140-450); Red Blood Cells 4.08 10^6/uL (4.0-5.20); Red Cell Distribution Width 16.5 % (11.8-14.3); White Blood Cell 17.3 10^3/uL (4.4-10.8)
[2018-07-18 06:15] LABS: Potassium 4.4 mmol/L (3.5-5.1)
[2018-07-18 06:22] LABS: BUN/Creatinine Ratio 13.6; Calcium 8.3 mg/dL (8.5-10.1)
[2018-07-18 08:00] VITALS: BP 104/56
[2018-07-18] MEDS: methylPREDNISolone SOD SUCC 40 MG/ML VL IV SCH (11:26)
[2018-07-18] MEDS: METOPROLOL TARTRATE 25 MG TAB PO SCH ×2 (11:26→22:00)
[2018-07-18] MEDS: BENAZEPRIL HCL 10 MG TAB PO SCH (11:27)
[2018-07-18] MEDS: PANTOPRAZOLE 40 MG TAB PO SCH (11:27)
[2018-07-18] MEDS: HYDROmorphone HCL 2 MG/ML VL IV PRN ×3 (11:34→20:02)
[2018-07-18 13:00] VITALS: BP 134/75
[2018-07-18 17:00] VITALS: BP 96/65
[2018-07-18] MEDS: GABAPENTIN 300 MG CAP PO SCH (17:50)
[2018-07-18] MEDS: AMITRIPTYLINE HCL 25 MG TAB PO SCH (19:27)
[2018-07-18 20:00] VITALS: BP 107/66
[2018-07-18 22:25] VITALS: BP 107/66
[2018-07-18] MEDS: TEMAZEPAM 15 MG CAP PO SCH (22:32)
[2018-07-19 05:00] VITALS: BP 110/54
[2018-07-19] MEDS: SODIUM CHLOR 0.9% PF (SALINE LOCK) 10ML VIAL/SYR IV SCH ×3 (06:01→22:26)
[2018-07-19] MEDS: HYDROmorphone HCL 2 MG/ML VL IV PRN ×2 (08:05→22:30)
[2018-07-19 08:24] VITALS: BP 124/92
[2018-07-19] MEDS: predniSONE 5 MG TAB PO SCH (11:06)
[2018-07-19] MEDS: METOPROLOL TARTRATE 25 MG TAB PO SCH ×2 (11:07→22:26)
[2018-07-19] MEDS: BENAZEPRIL HCL 10 MG TAB PO SCH (11:07)
[2018-07-19] MEDS: PANTOPRAZOLE 40 MG TAB PO SCH (11:08)
[2018-07-19] MEDS: HYDROcodone-ACET 10/325MG TAB PO PRN ×2 (11:09→12:41)
[2018-07-19 13:00] VITALS: BP 133/61
[2018-07-19] MEDS ORDERED: MULTIPLE VITAMINS W/ MINERALS TAB PO ONE (15:30)
[2018-07-19] MEDS ORDERED: ASCORBIC ACID 500 MG TAB PO ONE (15:30)
[2018-07-19 16:48] VITALS: BP 130/61
[2018-07-19] MEDS: Ensure Enlive Strawberry 8oz Bottle PO SCH (17:21)
[2018-07-19] MEDS: GABAPENTIN 300 MG CAP PO SCH (17:33)
[2018-07-19 22:00] VITALS: BP 122/62
[2018-07-19] MEDS: AMITRIPTYLINE HCL 25 MG TAB PO SCH (22:25)
[2018-07-19] MEDS: TEMAZEPAM 15 MG CAP PO SCH ×2 (22:26→22:30)
[2018-07-19] MEDS: ASCORBIC ACID 500 MG TAB PO SCH (22:26)
[2018-07-20] MEDS: SODIUM CHLOR 0.9% PF (SALINE LOCK) 10ML VIAL/SYR IV SCH ×3 (06:00→22:00)
[2018-07-20] MEDS: Ensure Enlive Strawberry 8oz Bottle PO SCH ×3 (08:00→18:00)
[2018-07-20 08:59] VITALS: BP 131/58
[2018-07-20] MEDS: ASCORBIC ACID 500 MG TAB PO SCH ×2 (09:48→21:06)
[2018-07-20] MEDS: PANTOPRAZOLE 40 MG TAB PO SCH (09:48)
[2018-07-20] MEDS: MULTIPLE VITAMINS W/ MINERALS TAB PO SCH (09:48)
[2018-07-20] MEDS: predniSONE 5 MG TAB PO SCH (09:48)
[2018-07-20] MEDS: BENAZEPRIL HCL 10 MG TAB PO SCH (09:49)
[2018-07-20] MEDS: METOPROLOL TARTRATE 25 MG TAB PO SCH ×2 (09:49→21:06)
[2018-07-20] MEDS: HYDROmorphone HCL 2 MG/ML VL IV PRN ×2 (10:05→15:42)
[2018-07-20 13:16] VITALS: BP 132/69
[2018-07-20] MEDS: HYDROcodone-ACET 10/325MG TAB PO PRN ×2 (13:27→21:06)
[2018-07-20] MEDS ORDERED: DOCUSATE SOD 100 MG CAP PO ONE (15:30)
[2018-07-20 17:12] VITALS: BP 112/61
[2018-07-20] MEDS: GABAPENTIN 300 MG CAP PO SCH (19:02)
[2018-07-20] MEDS: ALPRAZolam 0.25 MG TAB PO PRN (21:05)
[2018-07-20] MEDS: AMITRIPTYLINE HCL 25 MG TAB PO SCH (21:05)
[2018-07-20 22:09] VITALS: BP 120/72
[2018-07-21 05:59] VITALS: BP 114/60
[2018-07-21] MEDS: SODIUM CHLOR 0.9% PF (SALINE LOCK) 10ML VIAL/SYR IV SCH ×3 (06:15→22:00)
[2018-07-21 09:00] VITALS: BP 139/83
[2018-07-21] MEDS: Ensure Enlive Strawberry 8oz Bottle PO SCH ×3 (09:09→18:02)
[2018-07-21] MEDS: ASCORBIC ACID 500 MG TAB PO SCH ×2 (09:58→22:00)
[2018-07-21] MEDS: BENAZEPRIL HCL 10 MG TAB PO SCH (09:58)
[2018-07-21] MEDS: MULTIPLE VITAMINS W/ MINERALS TAB PO SCH (09:58)
[2018-07-21] MEDS: PANTOPRAZOLE 40 MG TAB PO SCH (09:58)
[2018-07-21] MEDS: predniSONE 5 MG TAB PO SCH (09:58)
[2018-07-21] MEDS: HYDROcodone-ACET 10/325MG TAB PO PRN ×2 (09:59→14:03)
[2018-07-21] MEDS: METOPROLOL TARTRATE 25 MG TAB PO SCH ×2 (10:01→22:01)
[2018-07-21] MEDS ORDERED: DOCUSATE SOD 100 MG CAP PO ONE (12:45)
[2018-07-21 12:49] VITALS: BP 139/83
[2018-07-21 13:00] VITALS: BP 107/57
[2018-07-21] MEDS: ALPRAZolam 0.25 MG TAB PO PRN ×2 (15:41→22:00)
[2018-07-21 17:00] VITALS: BP 115/68
[2018-07-21] MEDS: GABAPENTIN 300 MG CAP PO SCH (17:46)
[2018-07-21] MEDS: TEMAZEPAM 15 MG CAP PO SCH (22:00)
[2018-07-21] MEDS: AMITRIPTYLINE HCL 25 MG TAB PO SCH (22:01)
[2018-07-21 22:18] VITALS: BP 114/73
[2018-07-22 05:05] VITALS: BP 136/89
[2018-07-22] MEDS: SODIUM CHLOR 0.9% PF (SALINE LOCK) 10ML VIAL/SYR IV SCH ×2 (06:03→14:03)
[2018-07-22] MEDS: Ensure Enlive Strawberry 8oz Bottle PO SCH ×3 (07:33→18:26)
[2018-07-22 08:52] VITALS: BP 141/71
[2018-07-22] MEDS: HYDROcodone-ACET 10/325MG TAB PO PRN ×2 (09:52→17:00)
[2018-07-22] MEDS: predniSONE 5 MG TAB PO SCH (10:29)
[2018-07-22] MEDS: METOPROLOL TARTRATE 25 MG TAB PO SCH (10:29)
[2018-07-22] MEDS: PANTOPRAZOLE 40 MG TAB PO SCH (10:30)
[2018-07-22] MEDS: BENAZEPRIL HCL 10 MG TAB PO SCH (10:30)
[2018-07-22] MEDS: MULTIPLE VITAMINS W/ MINERALS TAB PO SCH (10:30)
[2018-07-22] MEDS: ASCORBIC ACID 500 MG TAB PO SCH (10:31)
[2018-07-22] MEDS ORDERED: FLEET ENEMA(ADULT) 135 ML PR ONE (10:45)
[2018-07-22 13:08] VITALS: BP 99/52
[2018-07-22] MEDS ORDERED: INFLUENZA QUAD 2018-2019 0.5 ML SYRG IM ONE (16:30)
[2018-07-22 16:45] VITALS: BP 118/70
[2018-07-22] MEDS: GABAPENTIN 300 MG CAP PO SCH (18:00)
== END 2018-07-22 19:40 | disposition home health service (06) | DRG 908 ==
LOC: CENTRAL 14:28
PROVIDERS: ADMIT Internal Medicine; ATTEND Internal Medicine
PROC: 0WUF0JZ Supplement Abdominal Wall with Synthetic Substitute, Open Approach (ICD-10-PCS; 2018-07-17)
PROC: 0KQK0ZZ Repair Right Abdomen Muscle, Open Approach (ICD-10-PCS; 2018-07-17)
PROC: 0KQL0ZZ Repair Left Abdomen Muscle, Open Approach (ICD-10-PCS; 2018-07-17)
PROC: 0DNW0ZZ Release Peritoneum, Open Approach (ICD-10-PCS; principal; 2018-07-17 08:24)
DX: T81.31XA Disruption of external operation (surgical) wound, not elsewhere classified, initial encounter (principal); E44.1 Mild protein-calorie malnutrition; Z68.44 Body mass index [BMI] 60.0-69.9, adult; M06.9 Rheumatoid arthritis, unspecified; I10 Essential (primary) hypertension; F41.9 Anxiety disorder, unspecified; K43.9 Ventral hernia without obstruction or gangrene; K66.0 Peritoneal adhesions (postprocedural) (postinfection); Y83.8 Other surgical procedures as the cause of abnormal reaction of the patient, or of later complication, without mention of misadventure at the time of the procedure; Y92.89 Other specified places as the place of occurrence of the external cause; G89.29 Other chronic pain; Z87.01 Personal history of pneumonia (recurrent); T38.0X5A Adverse effect of glucocorticoids and synthetic analogues, initial encounter; D72.828 Other elevated white blood cell count; Z80.9 Family history of malignant neoplasm, unspecified; Z88.3 Allergy status to other anti-infective agents; Z88.2 Allergy status to sulfonamides; Z91.048 Other nonmedicinal substance allergy status
CPT/HCPCS: 36415; 71045; 80048; 80053; 81001; 85025; 85610; 85730; 87081; 90674; 93005; 97110; 97116; 97163; 97530; G0378; J0330; J0690; J2250; J3490

== ENCOUNTER → 2018-08-25 | Outpatient (CLI) | payer OTHER ==
[~2018-08-25] MED LIST changes: -NITR0.2D12 TD
[2018-08-25 11:29] LABS: Urine Bacteria NONE SEEN /hpf (None Seen); Urine Blood Negative /uL (Negative); Urine WBC 3 /hpf (0 - 5)
[2018-08-25 11:32] LABS: Basophils # (auto) 0 uL; Basophils % (auto) 0.5 % (0.0-2.0); Eosinophils # (auto) 0.2 uL; Hematocrit 37.5 % (36.0-46.0); Hemoglobin 12.2 g/dL (12.2-16.2); Lymphocytes # (auto) 2.7 uL; Lymphocytes % (auto) 34.4 % (10.0-50.0); Mean Corpuscular Hemoglobin 28.6 pg (28.0-32.0); Mean Corpuscular Hgb Conc. 32.6 g/dL (32.0-36.0); Mean Corpuscular Volume 87.7 fL (80.0-100.0); Monocytes # (auto) 0.5 uL; Monocytes % (auto) 5.8 % (0.0-12.0); Neutrophils # (auto) 4.4 uL; Neutrophils % (auto) 57.3 % (37.0-80.0); Platelet Count (auto) 230 10^3/uL (140-450); Red Blood Cells 4.27 10^6/uL (4.0-5.20); Red Cell Distribution Width 17.4 % (11.8-14.3); White Blood Cell 7.7 10^3/uL (4.4-10.8)
[2018-08-25 11:39] LABS: Albumin 3.5 g/dL (3.4-5.0); Calcium 9.5 mg/dL (8.5-10.1); Potassium 4.5 mmol/L (3.5-5.1)
[2018-08-25 11:50] LABS: BUN/Creatinine Ratio 12.7; Bilirubin, Total 0.4 mg/dL (0.2-1.0); Total Protein 7.8 g/dL (6.4-8.2)
== END | disposition home or self-care (01) ==
LOC: LAB 10:49
PROVIDERS: ATTEND Internal Medicine
DX: N39.0 Urinary tract infection, site not specified (principal); C50.919 Malignant neoplasm of unspecified site of unspecified female breast; M06.9 Rheumatoid arthritis, unspecified; K46.9 Unspecified abdominal hernia without obstruction or gangrene
CPT/HCPCS: 36415; 80053; 81001; 83615; 85025; 87086